=== PATIENT | female | born 1950 | race African-American/Black ===

== ENCOUNTER 2020-01-10 18:43 | Inpatient (IN) | payer MEDICARE, BC, SELFPAY ==
--- NOTE | ~2020-01-10 | XR_ITS ---
XR chest 1V portable DATE: 01/10/2020 20:45 INDICATION: Shortness of breath, generalized chest pain, fever. TECHNIQUE: Portable AP chest on 01/10/2020 at 2039 hours COMPARISON: 01/12/2015 2 view chest FINDINGS: There is borderline or mild cardiomegaly. There is aortic calcification and tortuosity. There is mild prominence of minor fissure suggesting subpleural edema. There is mild pulmonary vascul ar congestion/redistribution. There is mild infiltrate and/or atelectasis at the left lower lobe. Osteoarthritic change at the glenohumeral joints. Degenerative change at the acromioclavicular joints . Scoliosis and degenerative spurring of the thoracic spine. Moderate osteopenia. IMPRESSION: Borderline or mild cardiomegaly, mild pulmonary vascular congestion, minor fissure subple ural edema, suggesting mild congestive changes Mild infiltrate or atelectasis, left lower lobe Reviewed, dictated and finalized at location A. UNHAIRER IMPRESSION: Borderline or mild cardiomegaly, mild pulmonary vascular congestion , minor fissure subpleural edema, suggesting mild congestive changes Mild infiltrate or atelectasis, left lower lobe
--- NOTE | ~2020-01-10 | US_ITS ---
EXAMINATION: US venous doppler LE EXAM DATE: 01/11/2020 12:14 INDICATION: right leg pain and bilateral leg swelling. TECHNIQUE: Multiple grayscale, color flow and Doppler images of the lower extremity deep venous syste ms bilaterally were obtained and reviewed. Comparison is made to prior examination from 02/24/2018. FINDINGS: Right side: The right common femoral, femoral and profunda veins demonstrate normal color flow, respi ratory variation, augmentation and compressibility. Compressibility, color flow confirmed within the right popliteal, posterior tibial, peroneal, and greater saphenous veins. Left side: The left common femoral, femoral and profunda veins demonstrate normal color flow, respira tory variation, augmentation and compressibility. Compressibility, color flow confirmed within the l eft popliteal, posterior tibial, peroneal, and greater saphenous veins. IMPRESSION: No lower extremity deep venous thrombosis bilaterally. Reviewed, dictated and finalized at location A.
--- NOTE | ~2020-01-10 | US_ITS ---
EXAMINATION: US right upper quadrant DATE: 01/14/2020 07:39 INDICATION: Abdominal pain TECHNIQUE: Multiple grayscale and Doppler ultrasound images of the abdomen were obtained. COMPARISON: None available FINDINGS: Bowel gas obscures visualization of the pancreas. The visualized portions of the pancreas a re unremarkable. The liver is normal with normal echogenicity and echotexture. No surface nodularity. Normal hepatopetal flow in the main portal vein. The gallbladder is surgically absent. The normal co mmon bile duct measures 4 mm. IMPRESSION: 1. No sonographic correlate for the patient's symptoms. Reviewed, dictated and finalized at location A. SAFETY INSPECTOR
--- NOTE | 2020-01-10 18:59 | ECG_ITS ---
Measurements Intervals [place] Rate: 97 P: [place]: 0 QRS: -23 QRSD: 103 T: 58 QT: 328 QTc: 418 Interpretive Statements ATRIAL FIBRILLATION WITH SHOR RUN OF ATRIAL TACHYCARDIA WITH RAPID VENTRICULAR RESPONSE LOW QRS VOLTAGE IN PRECORDIAL LEADS NONSPECIFIC T-WAVE ABNORMALITY- HIGH LATERAL LEADS BASELINE ARTIFACT- I, II, III, AVR, AVL, AVF, V3 ABNORMAL ECG Electronically Signed On 01-11-2020 8:19:16 MOTOR BIKE MECHANIC by Bonifacio Regan D.O.
--- NOTE | 2020-01-10 19:04 | ED.FEVER ---
HPI - Fever General Chief Complaint: Upper Respiratory Infection Stated Complaint: FEVER/COUGH Time Seen by Provider: 01/10/20 18:49 Source: family Mode of arrival: EMS Limitations: altered mental status History of Present Illness HPI Narrative: Patient is a 69-year-old female brought in by EMS due to shortness of breath, cough nonproductive and fever that started today. Patient is a poor historian, she is nonverbal, just nods up and down left and right to answer queries, due to history of intracranial hemorrhage secondary to ruptured aneurysms according to daughter. Patient is also nonambulatory and bedridden. Related Data Allergies Allergy/AdvReac Type Severity Reaction Status Date / Time atorvastatin Allergy Unknown Unknown Verified 01/10/20 19:04 clarithromycin Allergy Unknown Unknown Verified 01/10/20 19:04 Penicillins Allergy Unknown Unknown Verified 01/10/20 19:04 phenytoin Allergy Unknown Unknown Verified 01/10/20 19:04 Review of Systems Review of Systems: ROS unobtainable: Yes unobtainable due to medical condition Exam Const: Other: Moderate distress, morbidly obese HENMT: Head: normal to inspection Ears: external ears normal General nose exam: external nose not normal and no nasal discharge noted Face and sinus: normal facial exam Mouth: Yes moist mucous membranes Eyes: Conjunctivae: conjunctivae normal Pupils: Equal, round and reactive pupils present Neck: Neck: normal visual inspection Chest: Chest palpation & inspection: normal inspection of the chest Resp: Effort & Inspection: tachypneic Auscultation: rhonchi Cardio: Rate: regular rate Rhythm: regular rhythm GI: GI Palp: Yes Soft to palpation, No Tenderness to palpation present (GI), No Guarding due to palpation present (GI), No Rigid due to palpation and No Rebound tenderness present Skin: General skin exam: normal color Neuro: General: moves all extremities Other: Not oriented to time place and name Extrem: General: edema bilateral Course Reevaluation(s) Reevaluation #1: After the DuoNeb treatment patient is better. Date: 01/11/20 Time: 00:15 Vital Signs Vital signs: Vital Signs Temperature 37.9 C H 01/10/20 19:05 Pulse Rate 82 01/10/20 19:05 Respiratory Rate 20 01/10/20 19:05 Blood Pressure 130/55 L 01/10/20 19:05 Pulse Oximetry 99 01/10/20 19:05 Temperature 37.9 C H 01/10/20 19:05 Pulse Rate 88 01/10/20 22:00 Respiratory Rate 22 H 01/10/20 22:00 Blood Pressure 103/54 L 01/10/20 22:00 Pulse Oximetry 92 01/10/20 22:00 MDM - Fever MDM Narrative Medical decision making narrative: I have reviewed her labs and chest x-ray findings, suggestive of pneumonia most probable Covid. Try to do a CT scan of her chest but patient was unable to fit in the machine due to her wide girth. Discussed with hospitalist accepted the admit Differential Diagnosis Differential diagnosis: Likely gastroenteritis, community acquired pneumonia, viral infection and sepsis Lab Data Result diagrams: 01/10/20 20:08 01/10/20 20:08 Labs: Lab Results 01/10/20 01/10/20 01/10/20 Range/Units 20:08 20:08 20:08 WBC 13.3 H (4.5-10.0) K/mm3 RBC 3.77 L (4.2-5.4) M/mm3 Hgb 10.5 L (12.0-15.0) g/dL Hct 33.7 L (37.0-47.0) % MCV 89.4 (80-100) fl MCH 27.9 (26-34) pg MCHC 31.2 L (32-36) g/dl RDW 15.8 H (11.5-14.5) % Plt Count 195 (150-375) k/mm3 MPV 11.2 H (7.4-10.4) fl Immature Gran % (Auto) Not Reportable Neut % (Auto) Not Reportable Lymph % (Auto) Not Reportable Schley % (Auto) Not Reportable Eos % (Auto) Not Reportable Baso % (Auto) Not Reportable Lymph # (Auto) Not Reportable Schley # (Auto) Not Reportable Eos # (Auto) Not Reportable Baso # (Auto) Not Reportable Abs Immat Gran (auto) Not Reportable Absolute Neuts (auto) Not Reportable Absolute Nucleated RBC Not Reportable Total Counted 100
[2020-01-10 19:05] VITALS: BP 130/55; PULSE 82; RESP 20; TEMP 37.9; O2SAT 99
[2020-01-10 19:26] VITALS: O2SAT 99
--- NOTE | 2020-01-10 20:04 | PC.NURSE ---
Pt is a difficult stick for blood cultures and labs. Laureen ONIEL is at bedside now attempting to draw with multiple attempts at this time.
[2020-01-10 20:22] LABS: Hematocrit 33.7 % (37.0-47.0); Hemoglobin 10.5 g/dL (12.0-15.0); Immature Platelet Fraction Pct 3.9 % (0.9-11.2); Mean Corpuscular HGB Conc 31.2 g/dl (32-36); Mean Corpuscular Hemoglobin 27.9 pg (26-34); Mean Corpuscular Volume 89.4 fl (80-100); Mean Platelet Volume 11.2 fl (7.4-10.4); Platelet Count Result 195 k/mm3 (150-375); Red Blood Count 3.77 M/mm3 (4.2-5.4); Red Cell Distribution Width 15.8 % (11.5-14.5); White Blood Count 13.3 K/mm3 (4.5-10.0)
--- NOTE | 2020-01-10 20:28 | PC.NURSE ---
lab notified of CMP added on by EDP for blood specimens already in the lab.
[2020-01-10 20:30] VITALS: BP 131/63; PULSE 131; RESP 24; O2SAT 96
[2020-01-10 20:34] LABS: Lactic Acid Reflex 1.6 mmol/L (0.7-2.1)
[2020-01-10 20:35] LABS: INR 1.2; Prothrombin Time 15.4 Seconds (11.1-14.7)
[2020-01-10 20:36] LABS: Partial Thromboplastin Time 24.4 SECONDS (22.3-36.8)
--- NOTE | 2020-01-10 20:40 | PC.NURSE ---
military cook from lab; Tom came to assist and was able to get 2nd set of blood cultures drawn successfully at this time.
[2020-01-10 20:47] LABS: Troponin I 0.016 ng/mL (0.000-0.034)
[2020-01-10 20:56] LABS: Band Neutrophils Percent 6 % (0-6); Lymphocytes Absolute Manual 1.86 K/mm3 (1.1-4.5); Neutrophils Absolute Manual 11.43 K/mm3 (1.7-7.2); Neutrophils Percent Manual 80 % (46-73); Total Cells Counted 100
[2020-01-10 20:57] LABS: Anisocytosis 2+ (NORMAL); Platelet Estimate Adequate (Adequate)
[2020-01-10 21:00] LABS: Alanine Aminotransferase 13 U/L (4-35); Albumin Level 3.2 g/dL (3.5-5.1); Alkaline Phosphatase 197 U/L (38-126); Anion Gap 4 mmol/L (8-16); Aspartate Amino Transferase 21 U/L (14-36); Bilirubin,Total 0.8 mg/dL (0.2-1.3); Blood Urea Nitrogen 28 mg/dL (7-17); Calcium 9.2 mg/dL (8.4-10.2); Carbon Dioxide 29 mmol/L (22-30); Chloride 105 mmol/L (98-107); Estimated Glomerular Filt Rate 41; Glucose 55 mg/dL (65-105); Potassium 4.8 mmol/L (3.4-5.0); Sodium 138 mmol/L (137-145)
[2020-01-10] MEDS: DEXTROSE 50% 25 GM/50 ML SYRINGE (21:22)
[2020-01-10 22:00] VITALS: BP 103/54; PULSE 88; RESP 22; O2SAT 92
[2020-01-10 23:45] LABS: Alveolar/Arterial O2 Gradient 42.3 mmHg; Base Excess ABG -0.3 mEq/l (+/-2.0); Carboxyhemoglobin 0.7 % THb (0-2.0); Device ROOM AIR; Fractional Inspired Oxygen 21 %; HCO3 ABG 24.5 mEq/l (22.0-26.0); Methemoglobin ABG 0.1 %THb (0-1.5); Modified Allen's Test Unable to perform; Oxygen Content ABG 12.8 %vol (16.0-22.0); Oxygen Saturation ABG 90.8 % (95.0-100.0); Oxyhemoglobin 90.2 % THb (90.0-100.0); PCO2 ABG 40.3 mmHg (35.0-45.0); PO2 ABG 59.2 mmHg (80.0-100.0); PO2 FiO2 Ratio Arterial Blood 2.82 %; Site Drawn RIGHT RADIAL; Total Hemoglobin 10.1 g/dL (12.0-18.0); pH ABG 7.401 (7.350-7.450)
[2020-01-11] VITALS (11 sets, daily range): BP systolic 137–159; BP diastolic 53–79; PULSE 78–90; RESP 16–23; TEMP 36.6–37.8; O2SAT 92–100; BMI 58.5; BMI 11.0
--- NOTE | 2020-01-11 00:19 | PM.IMHP ---
H&P: HPI History of Present Illness Date/Time: 01/11/20 00:19 Chief complaint: Pneumonia Narrative: This is a morbidly obese 69-year-old diabetic female who is known to be completely aphasic with right-sided hemiparesis following previous CVA and who presented to the hospital with her daughter secondary to increased shortness of breath and fever that started today. The patient is known to be bed ridden. on my encounter with the patient tonight her daughter has already left. The patient answers questions by nodding her head and agrees that she has been nauseated and did vomit today. It is unknown how many times exactly that she vomited. She also can't tell me if she had any choking episode. She denies any chest pain, wheezing, headache, dysuria, cough, or diarrhea. The patient was evaluated emergency room tonight and found to be hypoxic. She was placed on supplemental oxygen an ABG demonstrated hypoxemic respiratory failure. ER provider attempted to obtain a chest CT scan although the patient was too large for the CT machine. CXR obtained in the ER demonstrated mild cardiomegaly, mild pulmonary vascular congestion, minor fissure subpleural edema, suggesting mild congestive changes and mild infiltrate or atelectasis, left lower lobe. The patient was treated with IV antibiotics, dexamethasone and IV fluids. The patient has been swabbed for COVID-19 and admitted to the hospital for further care. Review of Systems Review of Systems: All systems reviewed & are unremarkable except as noted in HPI and below PMFSH Past Medical History Medical History CHF (congestive heart failure) Diabetes mellitus H/O: HTN (hypertension) Social History Social History Smoking status: Former smoker Second hand tobacco smoke exposure: No Alcohol intake: never Substance use: never Spiritual care concerns: No Comments Past surgical and family histories reviewed and noncontributory. Meds Home Medications and Allergies Home Medications Medication Instructions Recorded Confirmed Type amlodipine 10 mg PO DAILY 01/11/20 01/11/20 History ascorbic acid (vitamin C) 250 mg PO DAILY 01/11/20 01/11/20 History aspirin [Adult Aspirin] 81 mg PO DAILY 01/11/20 01/11/20 History citalopram 10 mg PO DAILY 01/11/20 01/11/20 History cyanocobalamin (vitamin B-12) 1,000 mcg IM MONTHLY 01/11/20 01/11/20 History furosemide 40 mg PO DAILY 01/11/20 01/11/20 History gabapentin 300 mg PO TID 01/11/20 01/11/20 History glipizide 20 mg PO DAILY 01/11/20 01/11/20 History ibuprofen 600 mg PO Q6H PRN 01/11/20 01/11/20 History insulin detemir U-100 [Levemir 72 unit SUBCUT HS 01/11/20 01/11/20 History FlexTouch U-100 Insuln] labetalol 400 mg PO DAILY 01/11/20 01/11/20 History lancets [OneTouch Delica Plus 01/11/20 01/11/20 History Lancet] lancets [OneTouch UltraSoft 01/11/20 01/11/20 History Lancets] losartan 100 mg PO DAILY 01/11/20 01/11/20 History nystatin 1 applic TOPICAL BID 01/11/20 01/11/20 History omeprazole 20 mg PO DAILY 01/11/20 01/11/20 History potassium chloride 20 meq PO DAILY 01/11/20 01/11/20 History simvastatin 40 mg PO DAILY 01/11/20 01/11/20 History Allergies Allergy/AdvReac Type Severity Reaction Status Date / Time atorvastatin Allergy Unknown Unknown Verified 01/11/20 04:20 clarithromycin Allergy Unknown Unknown Verified 01/11/20 04:20 Penicillins Allergy Unknown Unknown Verified 01/11/20 04:20 phenytoin Allergy Unknown Unknown Verified 01/11/20 04:20 Vital Signs Vital Signs - 24 hr 01/10/20 19:05 01/10/20 19:26 01/10/20 20:30 Temperature 37.9 C H Pulse Rate 82 131 H Respiratory Rate 20 24 H Blood Pressure 130/55 L 131/63 Pulse Oximetry 99 99 96 01/10/20 22:00 Temperature Pulse Rate 88 Respiratory Rate 22 H Blood Pressure 103/54 L Pulse Oximetry 92 Exam Const: General: cooperative, alert, awake, il
[2020-01-11] MEDS: ALBUTEROL SULFATE NEB 2.5 MG/0.5 ML INH 5 MG INHALATION (00:42)
[2020-01-11] MEDS: IPRATROPIUM BR 0.02% INH SOLN 0.5 MG/2.5 ML VIAL INHALATION (00:42)
[2020-01-11] MEDS: LACTATED RINGERS 1,000 ML 200 ML IV CONT (01:22)
--- NOTE | 2020-01-11 01:25 | PC.NURSE ---
Per EDShaneka Emmanuel via verbal order read back, give 1L of lactated ringers at 150mL/hr.
--- NOTE | 2020-01-11 01:39 | PC.NURSE ---
IV fluids stopped at this time.
[2020-01-11 02:01] LABS: Glucose Point of Care 139 (65-105)
--- NOTE | 2020-01-11 03:15 | ADMGEN ---
This patient, Susannah Husain, was admitted to [facility] Surg Room 328-01. Patient/family oriented to hospital policies and general routines including ID bracelet, bed and alarms, visiting hours, pain management, procedures, bathroom and other care routines, personal items, smoking policy, room service/diet, and visiting hours. Information on how to activate the Rapid Response Team has been discussed. Patient/Family are encouraged to report perceived risks to care and to ask questions if they do not understand what they are told or what they should do.
[2020-01-11 05:10] LABS: Alveolar/Arterial O2 Gradient 69.1 mmHg; Base Excess ABG -1.5 mEq/l (+/-2.0); Fractional Inspired Oxygen 28 %; HCO3 ABG 23.3 mEq/l (22.0-26.0); Oxygen Content ABG 14.1 %vol (16.0-22.0); Oxygen Saturation ABG 96.2 % (95.0-100.0); Oxyhemoglobin 94.7 % THb (90.0-100.0); PCO2 ABG 39.5 mmHg (35.0-45.0); PO2 ABG 83.9 mmHg (80.0-100.0); Total Hemoglobin 10.5 g/dL (12.0-18.0); pH ABG 7.389 (7.350-7.450)
[2020-01-11 05:11] LABS: Device NASAL CANNULA; Modified Allen's Test Pass; Site Drawn LEFT RADIAL
[2020-01-11 08:08] LABS: Basophils Absolute Auto 0.1 K/mm3 (0.0-0.1); Basophils Percent Auto 0.3 % (0.2-1.2); Eosinophils Absolute Auto 0.2 K/mm3 (0-0.3); Eosinophils Percent Auto 0.7 % (0-4.4); Hematocrit 30.4 % (37.0-47.0); Hemoglobin 9.7 g/dL (12.0-15.0); Immature Granulocyte Absolute 0.24 K/mm3 (0.00-0.031); Immature Granulocyte Percent A 0.9 % (0-0.5); Lymphocytes Absolute Auto 0.79 K/mm3 (0.9-3.2); Mean Corpuscular HGB Conc 31.9 g/dl (32-36); Mean Corpuscular Volume 87.9 fl (80-100); Mean Platelet Volume 9.8 fl (7.4-10.4); Monocytes Absolute Auto 0.2 K/mm3 (0.1-0.6); Monocytes Percent Auto 0.9 % (2.6-8.5); Neutrophils Absolute Auto 24.9 K/mm3 (1.3-6.7); Neutrophils Percent Auto 94.2 % (45.5-73.1); Nucleated Red Blood Cells Perc 0.1 % (0.0-0.2); Platelet Count Result 177 k/mm3 (150-375); Red Blood Count 3.46 M/mm3 (4.2-5.4); Red Cell Distribution Width 15.5 % (11.5-14.5); White Blood Count 26.4 K/mm3 (4.5-10.0)
[2020-01-11 08:34] LABS: Anion Gap 7 mmol/L (8-16); Blood Urea Nitrogen 30 mg/dL (7-17); Calcium 8.8 mg/dL (8.4-10.2); Carbon Dioxide 24 mmol/L (22-30); Chloride 107 mmol/L (98-107); Estimated CRCL calculation 57 ml/min; Estimated Glomerular Filt Rate 45; Glucose 170 mg/dL (65-105); Potassium 6.3 mmol/L (3.4-5.0); Sodium 138 mmol/L (137-145)
[2020-01-11 09:00] LABS: Thyroid Stimulating Hormone Reflex 0.974 uIU/mL (0.465-4.68)
[2020-01-11] MEDS: ALBUTEROL SULFATE (*SP) AEROSOL 1 PUFF 2 PUFF INHALATION ×3 (09:10→21:41)
--- NOTE | 2020-01-11 09:40 | PCSTNOTE ---
Modified Barium Swallow study cannot be completed this date, 01/11/20 due to patient being COVID pending. THe MBS will be completed as soon as patient exhibits COVID clear.
--- NOTE | 2020-01-11 11:42 | ECG_ITS ---
Measurements Intervals [place] Rate: 82 P: -74 DC: 179 QRS: -8 QRSD: 104 T: 22 QT: 392 QTc: 459 Interpretive Statements SINUS RHYTHM WITH SINUS ARRHYTHMIA LOW QRS VOLTAGE IN PRECORDIAL LEADS BORDERLINE T WAVE ABNORMALITY- INFERIOR LEADS BASELINE ARTIFACT- V3-V4 BORDERLINE ECG Electronically Signed On 01-11-2020 14:50:32 MARINE PHOTOGRAPHER by Bonifacio Regan D.O.
--- NOTE | 2020-01-11 11:58 | PM.IMPN ---
Progress Note: A&P Assessment and Plan (1) Acute respiratory failure with hypoxemia: Code(s): J96.01 - Acute respiratory failure with hypoxia Status: Acute Assessment and Plan: May be secondary to acute pneumonia versus acute CHF exacerbation. Continue oxygen supplementation. Continuous pulse oximetry. Wean off of oxygen when possible. Monitor ABG. 2nd ABG stable. Check echocardiogram i RT assess and treat. Continue Albuterol Incentive Spirometry May CTA if not improving. (2) Pneumonia: Qualifiers: Laterality: bilateral Lung location: unspecified part of lung Pneumonia type: due to unspecified organism Qualified Code(s): J18.9 - Pneumonia, unspecified organism Code(s): J18.9 - Pneumonia, unspecified organism Status: Acute Assessment and Plan: Possible COVID pneumonia versus bacterial aspiration pneumonia. Rule out possible aspiration pneumonia as the patient is known to be aphasic - Modified Barium Swallow Eval study ordered treat high fevers, tylenol ordered. treat with IV levaquin continue albuterol inhalers QID scheduled and PRN ordered Incentive Spirometry Continue NPO overnight. Oxygen supplementation as needed. Sputum cultures. Blood cultures. UA sent on for urine culture. (3) Suspected 2019 novel coronavirus infection: Code(s): Z20.828 - Contact with and (suspected) exposure to other viral communicable diseases Status: Acute Assessment and Plan: Patient has been swabbed for lu virus - results likely back by morning. Continue droplet isolation. Supportive care. COVID-19 results pending. Continue dexamethasone. Continue IV Levaquin. Continuous cardiac telemetry monitoring. (4) Acute renal failure: Qualifiers: Acute renal failure type: unspecified Qualified Code(s): N17.9 - Acute kidney failure, unspecified Code(s): N17.9 - Acute kidney failure, unspecified Status: Acute Assessment and Plan: Likely secondary to hypoperfusion and pre renal in origin. Slightly improving from 1.5 to 1.4 today. Monitor renal function and urine output. Avoid nephrotoxin agents. But needed to restart Lasix at 40mg daily. Renally dose medications. Levaquin Q 48 hours. (5) Leukocytosis: Qualifiers: Leukocytosis type: unspecified Qualified Code(s): D72.829 - Elevated white blood cell count, unspecified Code(s): D72.829 - Elevated white blood cell count, unspecified Status: Acute Assessment and Plan: Likely secondary to acute pneumonia. Monitor CBCs WBC 13.3 yesterday, 26.4 today checking LDH, CRP, cardiac panel, Ferritin now last lactic was normal at 1.6 Elevated fevers, ordered IV tylenol ordered Sputum cx, BLood cultures collected and pending, UA done, ordered urine culture. continue IV Levaquin (6) Chronic anemia: Code(s): D64.9 - Anemia, unspecified Status: Chronic Assessment and Plan: Likely anemia of chronic disease. Not on Iron at home per home med list Hgb 10.5 to 9.7 today, Hct 33.7 to 30.4 today, Plts 195 to 177 today. Hemodynamically stable no acute s/s of new CVA No signs of acute blood loss. Monitor H&H, transfuse p.r.n.. (7) Hypoglycemia: Code(s): E16.2 - Hypoglycemia, unspecified Status: Acute Assessment and Plan: RESOLVED. DDM II, on insulin at home. Hypoglycemia protocol. The patient is known to be diabetic and may simply be hypoglycemic from not eating yesterday. ordered ACHS accuchecks ordered low dose insulin SSI protocol may need to increase from low to moderate SSI if not controlled continue to monitor glucose levels and renal function A1C lab pending (8) CHF (congestive heart failure): Code(s): I50.9 - Heart failure, unspecified Status: Acute Assessment and Plan: Uncompensated at this time. Takes daily oral Lasix 40 mg with a potassium 20 mEq supplement at sheri
[2020-01-11] MEDS: SODIUM POLYSTYRENE SULFONONATE 15 GM/60 ML BTL PO (12:19)
[2020-01-11] MEDS: SODIUM CHLORIDE 0.9% IV 1,000 ML 100 ML IV CONT (12:19)
[2020-01-11 12:38] LABS: Anion Gap 6 mmol/L (8-16); Blood Urea Nitrogen 29 mg/dL (7-17); Calcium 8.9 mg/dL (8.4-10.2); Carbon Dioxide 27 mmol/L (22-30); Chloride 104 mmol/L (98-107); Estimated CRCL calculation 53 ml/min; Estimated Glomerular Filt Rate 41; Glucose 196 mg/dL (65-105); Lactate Dehydrogenase 444 U/L (313-618); Potassium 5.5 mmol/L (3.4-5.0); Sodium 137 mmol/L (137-145)
[2020-01-11 12:46] LABS: Magnesium 2.1 mg/dL (1.6-2.3); Phosphorus 3.1 mg/dL (2.5-4.5)
[2020-01-11 12:53] LABS: Glucose Point of Care 212 (65-105)
[2020-01-11 12:53] LABS: Glucose Point of Care 180 (65-105)
[2020-01-11 12:59] LABS: NT Pro B Type Natriuretic Pept 4340 PG/ML (5-100)
[2020-01-11 13:08] LABS: CRP 8.2 mg/dL (<1.0); Creatine Kinase 37 U/L (30-135); Creatine Kinase MB 0.6 ng/mL (0.0-2.37)
[2020-01-11 13:13] LABS: Hemoglobin A1C 7.1 % (<5.7)
[2020-01-11 13:52] LABS: Troponin I < 0.012 ng/mL (0.000-0.034)
[2020-01-11] MEDS: FUROSEMIDE INJ 40 MG/4 ML VIAL IV PUSH (14:17)
[2020-01-11 14:56] LABS: SARS-CoV-2 RNA PCR Negative
[2020-01-11 16:54] LABS: Add Urine Microscopic? YES; Appearance Urine Cloudy (Clear); Bacteria Urine 2+ /hpf; Bilirubin Urine Negative (Negative); Blood Urine 2+ (Negative); Color Urine Yellow (Yellow); Glucose Urine UA Negative (Negative); Ketones Urine 1+ mg/dL (Negative); Leukocyte Esterase Ur 3+ LEU/UL (NEGATIVE); Mucus Urine Rare /lpf; Nitrate Urine Negative (Negative); Protein Urine 1+ mg/dL (Negative); Specific Grav Ur 1.016 (1.001-1.035); Squamous Epithelial Cell Urine Occasional /hpf (Few); WBC Urine >75 /hpf (0-3)
[2020-01-11 21:09] LABS: Glucose Point of Care 209 (65-105)
[2020-01-12] VITALS (11 sets, daily range): BP systolic 134–162; BP diastolic 67–74; PULSE 69–84; RESP 16–20; TEMP 36.4–36.9; O2SAT 95–98
--- NOTE | 2020-01-12 01:06 | ECHO_ITS ---
Patient Info Name: Susannah Husain Age: 69 years : 1950 Gender: Female Ht: 62 in Wt: 388 lbs BSA: 2.91 m2 HR: 80 bpm BP: 134 / 67 mmHg Heart Rhythm: Sinus Rhythm Technical Quality: Good Exam Date: 01/12/2020 9:52 AM Exam Location: [facility] Pulmonary Patient Status: Inpatient Admit Date: 01/11/2020 Staff Ordering Physician: Adin Tejada MD Well Tester: Srini Casey LISSETTE Attending Provider: López Choi MD Referring Physician: Mallory SMITH; Exam Type: CA echo dop color flow w con Study Info Indications I50.9 - Heart failure, unspecified Complete two-dimensional, color flow and Doppler transthoracic echocardiogram is performed. Contrast/Agitated Saline Contrast/Ag. Saline: Definity Amount: 2.00 ml Administered By: Rachell Guillen, SHANNAN Existing IV Access: Yes History/Risk Factors Pneumonia; CHF w/ BNP 4040, HTN, SOB, ARF hypoxia, cardiomegaly, edema. Summary 1. Complete two-dimensional, color flow and Doppler transthoracic echocardiogram is performed. 2. Left ventricular systolic function is normal, estimated at 60-65%. 3. Definity contrast injected to improve visualization. 4. Technically challenging examination presumably because of obesity. Left Ventricle Left ventricular chamber dimension is normal. Left ventricular systolic function is normal, estimated at 60-65%. The left ventricular diastolic function is normal. Definity contrast injected to improve visualization. Right Ventricle Right ventricular chamber dimension is normal. Left Atria Left atrial chamber dimension is normal. Right Atria Right atrial chamber dimension is normal. Aortic Valve The aortic valve is normal. Pulmonic Valve The pulmonic valve is not well visualized. Mitral Valve The mitral valve has normal leaflets. Tricuspid Valve The tricuspid valve leaflets are normal. Pericardium/Pleural The pericardium appears normal. Aorta The aortic root size at the sinus of Valsalva is normal. Left Ventricular Outflow Tract Name Value Normal LVOT 2D LVOT Diameter 2.37 cm LVOT Doppler LVOT Peak Gradient 3 mmHg LVOT Mean Gradient 2 mmHg LVOT VTI 18.29 cm LVOT VTI/AV VTI Ratio 0.59 LVOT Stroke Volume 80.93 ml LVOT CO 6.73 l/min LVOT CI 2.32 L/min/m2 Mitral Valve Name Value Normal MV Doppler MV Decel [place] 504.23 cm/s2 MV PHT 0 s MV Area (PHT) 4.13 cm2 4.00-5.00 MV Diastolic Function MV E Peak Velocity
[2020-01-12 02:19] LABS: Anion Gap 6 mmol/L (8-16); Blood Urea Nitrogen 31 mg/dL (7-17); Calcium 8.7 mg/dL (8.4-10.2); Carbon Dioxide 29 mmol/L (22-30); Chloride 103 mmol/L (98-107); Estimated CRCL calculation 57 ml/min; Estimated Glomerular Filt Rate 45; Glucose 225 mg/dL (65-105); Potassium 4.8 mmol/L (3.4-5.0); Sodium 138 mmol/L (137-145)
[2020-01-12 04:20] LABS: Glucose Point of Care 220 (65-105)
[2020-01-12 06:37] LABS: Hematocrit 28.6 % (37.0-47.0); Hemoglobin 9.2 g/dL (12.0-15.0); Immature Platelet Fraction Pct 3.3 % (0.9-11.2); Mean Corpuscular HGB Conc 32.2 g/dl (32-36); Mean Corpuscular Volume 86.9 fl (80-100); Mean Platelet Volume 10.3 fl (7.4-10.4); Platelet Count Result 128 k/mm3 (150-375); Red Blood Count 3.29 M/mm3 (4.2-5.4); Red Cell Distribution Width 15.7 % (11.5-14.5); White Blood Count 27.2 K/mm3 (4.5-10.0)
[2020-01-12 06:55] LABS: Alanine Aminotransferase 13 U/L (4-35); Albumin Level 2.9 g/dL (3.5-5.1); Alkaline Phosphatase 150 U/L (38-126); Anion Gap 5 mmol/L (8-16); Aspartate Amino Transferase 16 U/L (14-36); Bilirubin,Total 0.4 mg/dL (0.2-1.3); Blood Urea Nitrogen 30 mg/dL (7-17); Calcium 8.9 mg/dL (8.4-10.2); Carbon Dioxide 31 mmol/L (22-30); Chloride 104 mmol/L (98-107); Estimated CRCL calculation 60 ml/min; Estimated Glomerular Filt Rate 49; Glucose 199 mg/dL (65-105); Potassium 4.6 mmol/L (3.4-5.0); Sodium 140 mmol/L (137-145)
[2020-01-12 06:56] LABS: NT Pro B Type Natriuretic Pept 4040 PG/ML (5-100)
[2020-01-12] MEDS: ALBUTEROL SULFATE (*SP) AEROSOL 1 PUFF 2 PUFF INHALATION ×4 (08:21→21:43)
[2020-01-12 08:24] LABS: Glucose Point of Care 195 (65-105)
[2020-01-12] MEDS: FUROSEMIDE INJ 40 MG/4 ML VIAL IV PUSH (09:40)
[2020-01-12] MEDS: PERFLUTREN LIPID MICROSPHERES 1.5 ML VIAL DILUTED TO 10 ML TOTAL VOLUME IV PUSH (10:14)
--- NOTE | 2020-01-12 11:44 | PCSTNOTE ---
Modified Barium Swallow study cannot be completed according to the Radiology department. Nursing was notified. Awaiting any further physician instructions.
[2020-01-12 12:33] LABS: Glucose Point of Care 167 (65-105)
--- NOTE | 2020-01-12 12:57 | PM.IMPN ---
Progress Note: A&P Assessment and Plan (1) Septicemia: Code(s): A41.9 - Sepsis, unspecified organism Status: Acute Assessment and Plan: Present on admission with fevers, tachycardia and elevated WBC. Source intially felt related to PNA but consider urinary source. BCx growing gram negative bacilli. Currently on Levaquin and Rocephin. Will stop Levaquin and continue Rocephin. Add Ertapenem until final results known. Follow up on urine culture. (2) Acute respiratory failure with hypoxemia: Code(s): J96.01 - Acute respiratory failure with hypoxia Status: Acute Assessment and Plan: ABG on admission showed a PO2 of 59 on room air. CXR mild infiltrate or atelectasis LLL and mild congestive changes. Stable on 2 L. She has been weaned to 1 L now. Good UOP. Continue Lasix IV for today. Wean oxygen as tolerated (3) Pneumonia: Qualifiers: Laterality: bilateral Lung location: unspecified part of lung Pneumonia type: due to unspecified organism Qualified Code(s): J18.9 - Pneumonia, unspecified organism Code(s): J18.9 - Pneumonia, unspecified organism Status: Acute Assessment and Plan: As above with mild infiltrate left lower lobe. She does have elevated white count and O2 requirement. Concern for aspiration given the speech therapy findings. Adjust diet. Continue speech therapy. (4) Acute renal failure: Qualifiers: Acute renal failure type: unspecified Qualified Code(s): N17.9 - Acute kidney failure, unspecified Code(s): N17.9 - Acute kidney failure, unspecified Status: Acute Assessment and Plan: Baseline Cr 1-1.1 back in 2018. Cr 1.5 here. She is tolerating IV Lasix with Cr at 1.3 today. Monitor renal function and urine output. (5) Leukocytosis: Qualifiers: Leukocytosis type: unspecified Qualified Code(s): D72.829 - Elevated white blood cell count, unspecified Code(s): D72.829 - Elevated white blood cell count, unspecified Status: Acute Assessment and Plan: Related to above. (6) Chronic anemia: Code(s): D64.9 - Anemia, unspecified Status: Chronic Assessment and Plan: Baseline hemoglobin 10-11 range. Hemoglobin 10 5 on admission but dropped to 9.2 today. No evidence of acute blood loss. Check iron studies. Continue to follow. (7) CHF (congestive heart failure): Code(s): I50.9 - Heart failure, unspecified Status: Acute Assessment and Plan: Uncompensated at this time. BNP 4340. Takes daily oral Lasix 40 mg with a potassium 20 mEq supplement at home but has been without her Lasix for the last 10-12 days. Lasix IV starteed with good UOP. Echo ordered. Cr better today with diuresis. Contineu to monitor renal function, clincal exam and UOP. (8) Diabetes mellitus: Code(s): E11.9 - Type 2 diabetes mellitus without complications Status: Acute Assessment and Plan: A1c 7.1. The patient's blood glucose was reviewed on 01/11 Glucose better today. Continue AccuCheks covering with sliding scale. Hypoglycemia protocol available as needed. Continue to moniotr. Add low dose Lantus and advance as needed . (9) Dysrhythmia: Code(s): I49.9 - Cardiac arrhythmia, unspecified Status: Acute Assessment and Plan: AFib noted by EKG on admission but felt to be sinus mechanism on my review. Repeat EKG showing NSR. Tele showing 1st degree with occas 2nd degreeMobitz type 1. Echo ordered. Check apnea link. (10) Thrombocytopenia: Code(s): D69.6 - Thrombocytopenia, unspecified Status: Acute Assessment and Plan: Plt count dropped to 128K probably consumptive. Monitor closely (11) DVT prophylaxis: Code(s): Z29.9 - Encounter for prophylactic measures, unspecified Status: Acute Assessment and Plan: Lovenox; watch plt count (12) Hypoglycemia:
--- NOTE | 2020-01-12 13:22 | PCNFU ---
Nutrition Follow-Up Complete: Inadequate Oral Intake as related to aphasic as evidenced by NPO Goal: Meet estimated nutritional needs Limited progress on goal. We will continue current goal. Pt current nutrition is NPO. Nutrition recommendation: Per Bedside Swallow Eval. Last recorded weight is 172.9 kg down from 174.7 kg on admit. Bowel Motility:No BM reported at this time. Labs Reviewed:Glu 199,BUN 30, HCt 28.6,Hgb 9.2,GFR 49 Meds Noted:Britt Bautista Additional Notes:Nutrition follow up. Patient had MBS ordered, testing had not been performed due to PUI rule out. Patient PUI has been lifted, MBS has been canceled at this time. I spoke with Speech Therapy today, plans for Bedside Swallow today. Monitoring; Will monitor every 3 days.
[2020-01-12] MEDS: ENOXAPARIN 40 MG/0.4 ML SYRINGE SUB-Q (16:02)
[2020-01-12] MEDS: ERTAPENEM 1 GM/NS 50 ML 1 GM/50 ML BAG IVPB (16:03)
[2020-01-12 17:24] LABS: Glucose Point of Care 156 (65-105)
[2020-01-12] MEDS: INSULIN GLARGINE (*BKC) 100 UNITS/ML 10 UNITS SUB-Q (21:16)
[2020-01-12 21:51] LABS: Glucose Point of Care 249 (65-105)
[2020-01-13] VITALS (14 sets, daily range): BP systolic 150–155; BP diastolic 75–77; PULSE 66–115; RESP 16–23; TEMP 36.1–36.8; O2SAT 94–99; BMI 11.0
[2020-01-13 05:50] LABS: Basophils Absolute Auto 0.1 K/mm3 (0.0-0.1); Basophils Percent Auto 0.2 % (0.2-1.2); Eosinophils Absolute Auto 0.1 K/mm3 (0-0.3); Eosinophils Percent Auto 0.4 % (0-4.4); Hematocrit 28.9 % (37.0-47.0); Hemoglobin 9.6 g/dL (12.0-15.0); Immature Granulocyte Absolute 0.33 K/mm3 (0.00-0.031); Immature Granulocyte Percent A 1.4 % (0-0.5); Lymphocytes Absolute Auto 3.88 K/mm3 (0.9-3.2); Lymphocytes Percent Auto 16.1 % (18.3-44.2); Mean Corpuscular HGB Conc 33.2 g/dl (32-36); Mean Corpuscular Hemoglobin 27.5 pg (26-34); Mean Corpuscular Volume 82.8 fl (80-100); Monocytes Absolute Auto 1.7 K/mm3 (0.1-0.6); Monocytes Percent Auto 7.1 % (2.6-8.5); Neutrophils Absolute Auto 18.1 K/mm3 (1.3-6.7); Neutrophils Percent Auto 74.8 % (45.5-73.1); Platelet Count Result 130 k/mm3 (150-375); Red Blood Count 3.49 M/mm3 (4.2-5.4); Red Cell Distribution Width 15.6 % (11.5-14.5); White Blood Count 24.2 K/mm3 (4.5-10.0)
[2020-01-13 06:06] LABS: Alanine Aminotransferase 11 U/L (4-35); Alkaline Phosphatase 141 U/L (38-126); Anion Gap 4 mmol/L (8-16); Aspartate Amino Transferase 15 U/L (14-36); Bilirubin,Total 0.5 mg/dL (0.2-1.3); Blood Urea Nitrogen 28 mg/dL (7-17); Calcium 9.1 mg/dL (8.4-10.2); Carbon Dioxide 33 mmol/L (22-30); Chloride 102 mmol/L (98-107); Estimated CRCL calculation 65 ml/min; Estimated Glomerular Filt Rate 54; Glucose 118 mg/dL (65-105); Sodium 139 mmol/L (137-145)
[2020-01-13 06:57] LABS: Iron 123 ug/dL (37-170)
[2020-01-13 07:07] LABS: Percent Iron Saturation 46 % (20-50)
[2020-01-13 07:21] LABS: Ovalocytes 1+ (NORMAL); Platelet Estimate Adequate (Adequate); Target Cells 1+ (NORMAL)
[2020-01-13] MEDS: ERTAPENEM 1 GM/NS 50 ML 1 GM/50 ML BAG IVPB (08:39)
[2020-01-13] MEDS: ASCORBIC ACID 250 MG TABLET PO (08:39)
[2020-01-13] MEDS: ASPIRIN 81 MG ENTERIC TABLET PO (08:39)
[2020-01-13] MEDS: ENOXAPARIN 40 MG/0.4 ML SYRINGE SUB-Q (08:39)
[2020-01-13] MEDS: CITALOPRAM HYDROBROMIDE 10 MG TABLET PO (08:39)
[2020-01-13] MEDS: amLODIPine BESYLATE 5 MG TABLET 10 MG PO (08:39)
[2020-01-13] MEDS: GABAPENTIN 300 MG CAPSULE PO ×3 (08:40→16:46)
[2020-01-13] MEDS: FUROSEMIDE INJ 40 MG/4 ML VIAL IV PUSH (08:40)
[2020-01-13] MEDS: PANTOPRAZOLE 40 MG TABLET PO (08:41)
[2020-01-13] MEDS: SIMVASTATIN 20 MG TABLET 40 MG PO (08:41)
[2020-01-13 09:24] LABS: Glucose Point of Care 99 (65-105)
[2020-01-13] MEDS: ALBUTEROL SULFATE (*SP) AEROSOL 1 PUFF 2 PUFF INHALATION ×4 (09:56→22:37)
[2020-01-13 13:34] LABS: Glucose Point of Care 128 (65-105)
--- NOTE | 2020-01-13 14:15 | PM.IMPN ---
Progress Note: A&P Assessment and Plan (1) Septicemia: Code(s): A41.9 - Sepsis, unspecified organism Status: Acute Assessment and Plan: Present on admission with fevers, tachycardia and elevated WBC. Source intially felt related to PNA but consider urinary source. BCx growing EColi(2of2) sensitive to Rocephin. Urine culture growing 100K colonies non-uropathogenic gram positive MO felt to be contaminant. Source unclear but high suspicion for urinary source. Consider GB or bowel. Will check RUQ. Can't get CT scan due to her size. Continue Rocephin. Left message at family phone number in chart to provide update. (2) Acute respiratory failure with hypoxemia: Code(s): J96.01 - Acute respiratory failure with hypoxia Status: Acute Assessment and Plan: ABG on admission showed a PO2 of 59 on room air. CXR mild infiltrate or atelectasis LLL and mild congestive changes. Stable on 2 L. Apnea link showing AHI 12 and RI 16. Good UOP with Lasix IV. Continue the same today. Wean oxygen as tolerated (3) Pneumonia: Qualifiers: Laterality: bilateral Lung location: unspecified part of lung Pneumonia type: due to unspecified organism Qualified Code(s): J18.9 - Pneumonia, unspecified organism Code(s): J18.9 - Pneumonia, unspecified organism Status: Acute Assessment and Plan: As above with mild infiltrate left lower lobe. She does have elevated white count and O2 requirement. Concern for aspiration given the speech therapy findings. Diet adjusted. Continue speech therapy. Add Flayl to cover for possible aspiration. Contineu Rocephin. (4) Acute renal failure: Qualifiers: Acute renal failure type: unspecified Qualified Code(s): N17.9 - Acute kidney failure, unspecified Code(s): N17.9 - Acute kidney failure, unspecified Status: Acute Assessment and Plan: Baseline Cr 1-1.1 back in 2018. Cr 1.5 here. She is tolerating IV Lasix with Cr at 1.2 today. Monitor renal function and urine output. (5) Leukocytosis: Qualifiers: Leukocytosis type: unspecified Qualified Code(s): D72.829 - Elevated white blood cell count, unspecified Code(s): D72.829 - Elevated white blood cell count, unspecified Status: Acute Assessment and Plan: White count better today. Related to above. (6) Chronic anemia: Code(s): D64.9 - Anemia, unspecified Status: Chronic Assessment and Plan: Baseline hemoglobin 10-11 range. Hemoglobin 10 5 on admission but dropped to 9 range but stable today. No evidence of acute blood loss. Iron studies normal. Continue to follow. (7) CHF (congestive heart failure): Code(s): I50.9 - Heart failure, unspecified Status: Acute Assessment and Plan: Uncompensated at this time. BNP 4340. Takes daily oral Lasix 40 mg with a potassium 20 mEq supplement at home but has been without her Lasix for the last 10-12 days. Lasix IV started with good UOP. Echo showing EF 60% with normal diastolic function. Rt sided failure? Cr better today with diuresis. Continue to monitor renal function, clinical exam and UOP. (8) Diabetes mellitus: Code(s): E11.9 - Type 2 diabetes mellitus without complications Status: Acute Assessment and Plan: A1c 7.1. The patient's blood glucose was reviewed on 01/12 Glucose reasonably well controlled today. Continue AccuCheks covering with sliding scale. Hypoglycemia protocol available as needed. Continue to monitor. Continue Lantus and advance as needed . (9) Dysrhythmia: Code(s): I49.9 - Cardiac arrhythmia, unspecified Status: Acute Assessment and Plan: AFib noted by EKG on admission but felt to be incorrect with sinus mechanism on my review. Repeat EKG showing NSR. Tele showing 1st degree with occas 2nd degree Mobitz type 1 probably related to the ANILA. Echo as above. Wi
[2020-01-13] MEDS: EUCERIN CREAM 120 GM JAR 1 APPLIC TOPICAL (16:46)
[2020-01-13] MEDS: metroNIDAZOLE 250 MG TABLET PO ×2 (16:47→21:24)
[2020-01-13 18:06] LABS: Glucose Point of Care 156 (65-105)
[2020-01-13] MEDS: INSULIN GLARGINE (*BKC) 100 UNITS/ML 10 UNITS SUB-Q (22:05)
[2020-01-13 23:21] LABS: Glucose Point of Care 178 (65-105)
[2020-01-14] VITALS (11 sets, daily range): BP systolic 131–157; BP diastolic 65–73; PULSE 63–80; RESP 18–20; TEMP 36.4–36.7; O2SAT 96–98
[2020-01-14 06:39] LABS: Basophils Percent Auto 0.2 % (0.2-1.2); Eosinophils Absolute Auto 0.1 K/mm3 (0-0.3); Eosinophils Percent Auto 0.8 % (0-4.4); Hematocrit 30.1 % (37.0-47.0); Hemoglobin 9.7 g/dL (12.0-15.0); Immature Granulocyte Percent A 2.3 % (0-0.5); Lymphocytes Absolute Auto 2.92 K/mm3 (0.9-3.2); Lymphocytes Percent Auto 22.1 % (18.3-44.2); Mean Corpuscular HGB Conc 32.2 g/dl (32-36); Mean Corpuscular Hemoglobin 27.9 pg (26-34); Mean Corpuscular Volume 86.5 fl (80-100); Mean Platelet Volume 10.2 fl (7.4-10.4); Monocytes Absolute Auto 0.9 K/mm3 (0.1-0.6); Monocytes Percent Auto 6.5 % (2.6-8.5); Neutrophils Percent Auto 68.1 % (45.5-73.1); Platelet Count Result 144 k/mm3 (150-375); Red Blood Count 3.48 M/mm3 (4.2-5.4); Red Cell Distribution Width 15.8 % (11.5-14.5); White Blood Count 13.2 K/mm3 (4.5-10.0)
[2020-01-14 06:59] LABS: Anion Gap 5 mmol/L (8-16); Blood Urea Nitrogen 24 mg/dL (7-17); Carbon Dioxide 34 mmol/L (22-30); Chloride 100 mmol/L (98-107); Estimated CRCL calculation 70 ml/min; Estimated Glomerular Filt Rate 59; Glucose 165 mg/dL (65-105); Magnesium 1.8 mg/dL (1.6-2.3); Phosphorus 3.3 mg/dL (2.5-4.5); Potassium 3.9 mmol/L (3.4-5.0); Sodium 139 mmol/L (137-145)
[2020-01-14 08:27] LABS: Glucose Point of Care 146 (65-105)
[2020-01-14] MEDS: ALBUTEROL SULFATE (*SP) AEROSOL 1 PUFF 2 PUFF INHALATION ×4 (08:37→22:09)
[2020-01-14] MEDS: amLODIPine BESYLATE 5 MG TABLET 10 MG PO (08:43)
[2020-01-14] MEDS: FUROSEMIDE INJ 40 MG/4 ML VIAL IV PUSH ×2 (08:44→18:23)
[2020-01-14] MEDS: ASPIRIN 81 MG ENTERIC TABLET PO (08:44)
[2020-01-14] MEDS: GABAPENTIN 300 MG CAPSULE PO ×3 (08:44→17:02)
[2020-01-14] MEDS: ASCORBIC ACID 250 MG TABLET PO (08:44)
[2020-01-14] MEDS: CITALOPRAM HYDROBROMIDE 10 MG TABLET PO (08:44)
[2020-01-14] MEDS: metroNIDAZOLE 250 MG TABLET PO ×4 (08:44→20:28)
[2020-01-14] MEDS: ENOXAPARIN 40 MG/0.4 ML SYRINGE SUB-Q (08:44)
[2020-01-14] MEDS: PANTOPRAZOLE 40 MG TABLET PO (08:45)
[2020-01-14] MEDS: EUCERIN CREAM 120 GM JAR 1 APPLIC TOPICAL (08:45)
[2020-01-14] MEDS: SIMVASTATIN 20 MG TABLET 40 MG PO (08:45)
[2020-01-14] MEDS: INSULIN ASPART (*BKC) 100 UNITS/ML SUB-Q (12:17)
[2020-01-14 12:19] LABS: Glucose Point of Care 205 (65-105)
--- NOTE | 2020-01-14 15:34 | PM.IMPN ---
Progress Note: A&P Assessment and Plan (1) Septicemia: Code(s): A41.9 - Sepsis, unspecified organism Status: Acute Assessment and Plan: Present on admission with fevers, tachycardia and elevated WBC. Source intially felt related to PNA but consider urinary source. BCx growing EColi(2of2) sensitive to Rocephin. Urine culture growing 100K colonies non-uropathogenic gram positive MO felt to be contaminant. Source unclear but high suspicion for urinary source. RUQ showing GB absent. Can't get CT scan due to her size. Continue Rocephin. Home soon (2) Acute respiratory failure with hypoxemia: Code(s): J96.01 - Acute respiratory failure with hypoxia Status: Acute Assessment and Plan: ABG on admission showed a PO2 of 59 on room air. CXR mild infiltrate or atelectasis LLL and mild congestive changes. Stable on 1L. Apnea link showing AHI 12 and RI 16. Good UOP with Lasix IV. Continue the same today with extra dose tonight. Wean oxygen as tolerated (3) Pneumonia: Qualifiers: Laterality: bilateral Lung location: unspecified part of lung Pneumonia type: due to unspecified organism Qualified Code(s): J18.9 - Pneumonia, unspecified organism Code(s): J18.9 - Pneumonia, unspecified organism Status: Acute Assessment and Plan: As above with mild infiltrate left lower lobe. She does have elevated white count and O2 requirement. Concern for aspiration given the speech therapy findings. Diet adjusted. Continue speech therapy. Continue abx. Wean O2. (4) Acute renal failure: Qualifiers: Acute renal failure type: unspecified Qualified Code(s): N17.9 - Acute kidney failure, unspecified Code(s): N17.9 - Acute kidney failure, unspecified Status: Acute Assessment and Plan: Baseline Cr 1-1.1 back in 2018. Cr 1.5 here. She is tolerating IV Lasix with Cr at 1.1 today. Monitor renal function and urine output. (5) Leukocytosis: Qualifiers: Leukocytosis type: unspecified Qualified Code(s): D72.829 - Elevated white blood cell count, unspecified Code(s): D72.829 - Elevated white blood cell count, unspecified Status: Acute Assessment and Plan: White count again better today. Related to above. (6) Chronic anemia: Code(s): D64.9 - Anemia, unspecified Status: Chronic Assessment and Plan: Baseline hemoglobin 10-11 range. Hemoglobin 10 5 on admission but dropped to 9 range but stable today. No evidence of acute blood loss. Iron studies normal. Continue to follow periodically. (7) CHF (congestive heart failure): Code(s): I50.9 - Heart failure, unspecified Status: Acute Assessment and Plan: Uncompensated on admission. BNP 4340. Takes daily oral Lasix 40 mg with a potassium 20 mEq supplement at home but has been without her Lasix for the last 10-12 days. Lasix IV started with good UOP. Echo showing EF 60% with normal diastolic function. Rt sided failure? Cr better today with diuresis. Continue to monitor renal function, clinical exam and UOP. Extra dose Lasix tonight. (8) Diabetes mellitus: Code(s): E11.9 - Type 2 diabetes mellitus without complications Status: Acute Assessment and Plan: A1c 7.1. The patient's blood glucose was reviewed on 01/13 Glucose reasonably well controlled today. Continue AccuCheks covering with sliding scale. Hypoglycemia protocol available as needed. Continue to monitor. Continue Lantus and advance as needed . (9) Dysrhythmia: Code(s): I49.9 - Cardiac arrhythmia, unspecified Status: Acute Assessment and Plan: AFib noted by EKG on admission but felt to be incorrect with sinus mechanism on my review. Repeat EKG showing NSR. Tele showing 1st degree with occas skipped beats. There was 2nd degree Mobitz type 1 probably related to the ANILA but not noted now. Echo as above.
[2020-01-14 17:33] LABS: Glucose Point of Care 197 (65-105)
[2020-01-14] MEDS: INSULIN GLARGINE (*BKC) 100 UNITS/ML 10 UNITS SUB-Q (20:58)
[2020-01-14 21:30] LABS: Glucose Point of Care 225 (65-105)
[2020-01-15] VITALS (12 sets, daily range): BP systolic 126–137; BP diastolic 62–64; PULSE 64–79; RESP 18–20; TEMP 36.7–37; O2SAT 92–96
--- NOTE | 2020-01-15 00:40 | PC.NURSE ---
Rocephin dose given @2200 on 01/14/2020 per SHANNAN Marks
[2020-01-15 07:43] LABS: Hematocrit 29.6 % (37.0-47.0); Hemoglobin 9.6 g/dL (12.0-15.0); Mean Corpuscular HGB Conc 32.4 g/dl (32-36); Mean Corpuscular Hemoglobin 27.4 pg (26-34); Mean Corpuscular Volume 84.6 fl (80-100); Mean Platelet Volume 9.6 fl (7.4-10.4); Platelet Count Result 182 k/mm3 (150-375); Red Cell Distribution Width 15.4 % (11.5-14.5); White Blood Count 12.4 K/mm3 (4.5-10.0)
[2020-01-15 08:03] LABS: Anion Gap 1 mmol/L (8-16); Blood Urea Nitrogen 21 mg/dL (7-17); Calcium 9.1 mg/dL (8.4-10.2); Carbon Dioxide 39 mmol/L (22-30); Chloride 96 mmol/L (98-107); Estimated CRCL calculation 69 ml/min; Estimated Glomerular Filt Rate 59; Glucose 178 mg/dL (65-105); Potassium 3.6 mmol/L (3.4-5.0); Sodium 136 mmol/L (137-145)
[2020-01-15] MEDS: ASCORBIC ACID 250 MG TABLET PO (08:36)
[2020-01-15] MEDS: GABAPENTIN 300 MG CAPSULE PO ×3 (08:36→16:57)
[2020-01-15] MEDS: amLODIPine BESYLATE 5 MG TABLET 10 MG PO (08:37)
[2020-01-15] MEDS: ENOXAPARIN 40 MG/0.4 ML SYRINGE SUB-Q (08:37)
[2020-01-15] MEDS: ASPIRIN 81 MG ENTERIC TABLET PO (08:37)
[2020-01-15] MEDS: FUROSEMIDE INJ 40 MG/4 ML VIAL IV PUSH (08:37)
[2020-01-15] MEDS: CITALOPRAM HYDROBROMIDE 10 MG TABLET PO (08:38)
[2020-01-15] MEDS: metroNIDAZOLE 250 MG TABLET PO ×3 (08:38→16:57)
[2020-01-15] MEDS: EUCERIN CREAM 120 GM JAR 1 APPLIC TOPICAL (08:38)
[2020-01-15] MEDS: PANTOPRAZOLE 40 MG TABLET PO (08:38)
[2020-01-15] MEDS: SIMVASTATIN 20 MG TABLET 40 MG PO (08:39)
[2020-01-15 08:55] LABS: Glucose Point of Care 176 (65-105)
[2020-01-15] MEDS: ALBUTEROL SULFATE (*SP) AEROSOL 1 PUFF 2 PUFF INHALATION ×4 (09:45→21:58)
--- NOTE | 2020-01-15 10:04 | PM.DS ---
DS: Admitting Diagnosis Admitting Diagnosis Admitting Diagnosis: Pneumonia DS: Discharge Diagnosis Discharge Diagnosis (1) Septicemia: Code(s): A41.9 - Sepsis, unspecified organism Status: Acute Assessment and Plan: Present on admission with fevers, tachycardia and elevated WBC. Source initially felt related to PNA but consider urinary source. BCx growing EColi(2of2) sensitive to Rocephin. Urine culture growing 100K colonies non-uropathogenic gram positive MO felt to be contaminant. Source unclear but high suspicion for urinary source. RUQ showing GB absent. Can't get CT scan due to her size. Started on appropriate antibiotics on admission (01/09). Continue antibiotics for a 10 course. (2) Acute respiratory failure with hypoxemia: Code(s): J96.01 - Acute respiratory failure with hypoxia Status: Acute Assessment and Plan: ABG on admission showed a PO2 of 59 on room air. CXR mild infiltrate or atelectasis LLL and mild congestive changes. Stable on 1L. Apnea link showing AHI 12 and RI 16. Good UOP with Lasix IV. Abx started for potential PNA. Clinically improved. (3) Pneumonia: Qualifiers: Pneumonia type: due to unspecified organism Laterality: bilateral Lung location: unspecified part of lung Qualified Code(s): J18.9 - Pneumonia, unspecified organism Code(s): J18.9 - Pneumonia, unspecified organism Status: Acute Assessment and Plan: As above with mild infiltrate left lower lobe. She did elevated white count and O2 requirement. Concern for aspiration given the speech therapy findings. She was started on abx with benefit. Diet adjusted. We continued speech therapy. (4) Acute renal failure: Qualifiers: Acute renal failure type: unspecified Qualified Code(s): N17.9 - Acute kidney failure, unspecified Code(s): N17.9 - Acute kidney failure, unspecified Status: Acute Assessment and Plan: Baseline Cr 1-1.1 back in 2018. Cr 1.5 here. She tolerated IV Lasix with Cr at 1.1 today. (5) Leukocytosis: Qualifiers: Leukocytosis type: unspecified Qualified Code(s): D72.829 - Elevated white blood cell count, unspecified Code(s): D72.829 - Elevated white blood cell count, unspecified Status: Acute Assessment and Plan: White count elevated related to septicemia but trended down with appropriate treatment. (6) Chronic anemia: Code(s): D64.9 - Anemia, unspecified Status: Chronic Assessment and Plan: Baseline hemoglobin 10-11 range. Hemoglobin 10 5 on admission but dropped to 9 range but remained stable. No evidence of acute blood loss. Iron studies normal. (7) CHF (congestive heart failure): Code(s): I50.9 - Heart failure, unspecified Status: Acute Assessment and Plan: Uncompensated on admission. BNP 4340. Takes daily oral Lasix 40 mg with a potassium 20 mEq supplement at home but has been without her Lasix for the last 10-12 days. Lasix IV started with good UOP. Echo showing EF 60% with normal diastolic function. Rt sided failure? Cr improved in general with diuresis. Will resume home Lasix dose since decompensation due to being out of her meds. (8) Diabetes mellitus: Code(s): E11.9 - Type 2 diabetes mellitus without complications Status: Acute Assessment and Plan: A1c 7.1. The patient's blood glucose was monitored closely. Glucose was reasonably well controlled. We continued AccuCheks covering with sliding scale. Hypoglycemia protocol available as needed. We continued Lantus. (9) Dysrhythmia: Code(s): I49.9 - Cardiac arrhythmia, unspecified Status: Acute Assessment and Plan: AFib noted by EKG on admission but felt to be incorrect with sinus mechanism on my review. Repeat EKG showing NSR. Tele showing 1st degree with occas skipped beats. There was 2nd degree Mobitz type 1
--- NOTE | 2020-01-15 11:54 | PCNFU ---
Nutrition Follow-Up Complete: Inadequate Oral Intake as related to aphasic as evidenced by NPO Goal: Meet estimated nutritional needs Progressing towards goal. We will continue current goal. Pt current nutrition is Pureed, Level /DBCC with Mildly Thick liquids, Level 2. Nutrition recommendation: agree Last recorded weight is 166.6 kg, down from admit weight 174.7 kg. Bowel Motility: +BM 01/13. Labs Reviewed:Glu 178,K 136,Cr 1.10, Hgb 9.6, Hct 29.6 Meds Noted:Rocephin,Vit C, Lantus,Lasix,Protonix Additional Notes: Nutrition follow up today. Speech therapy working with patient today. MBS had been performed on 01/11 with Pureed, Level 4 and Mildly Thick liquids, Level 2 recommended. Patient is eating 95-100% of meals. Glucerna shakes added BID providing an additional 220 kcals and 10 gms protein 2/2 to wounds, stage 2 Pressure Ulcer reported on coccyx. Patient expressed she would like flavor chocolate for diet supplement. Diet office notified. Monitoring: Will monitor every 5 days.
--- NOTE | 2020-01-15 12:21 | PC.NURSE ---
Patient is turned and repositioned q 2hrs and bed changed as patient is incontinent of bowel and bladder. Patient tolerated well.
[2020-01-15 12:38] LABS: Glucose Point of Care 201 (65-105)
[2020-01-15] MEDS: INSULIN ASPART (*BKC) 100 UNITS/ML SUB-Q ×2 (13:11→18:43)
--- NOTE | 2020-01-15 17:37 | PC.NURSE ---
Talked with Dr. Choi regarding patient has been on Room Air for 3 hrs and saturations are in the 90s. 92% on Room air. Dr. Choi said he would discharge patient to home without oxygen.
[2020-01-15 17:51] LABS: Glucose Point of Care 227 (65-105)
== END 2020-01-15 22:23 | disposition home health service (06) | DRG 871 ==
LOC: ANHED 22:44 → ANH3MEDSUR 01-11 03:57
PROVIDERS: Nurse Practitioner; Admitting Provider Family Medicine; Emergency Provider Emergency Medicine; PCP Nurse Practitioner Family; Visit Provider Internal Medicine
DX: A41.51 Sepsis due to Escherichia coli [E. coli] (principal); J96.01 Acute respiratory failure with hypoxia; I69.351 Hemiplegia and hemiparesis following cerebral infarction affecting right dominant side; Z68.43 Body mass index [BMI] 50.0-59.9, adult; I69.320 Aphasia following cerebral infarction; E66.01 Morbid (severe) obesity due to excess calories; I10 Essential (primary) hypertension; E11.9 Type 2 diabetes mellitus without complications; D64.9 Anemia, unspecified; E11.65 Type 2 diabetes mellitus with hyperglycemia; I50.9 Heart failure, unspecified; E87.5 Hyperkalemia; Z20.828 Contact with and (suspected) exposure to other viral communicable diseases; D69.6 Thrombocytopenia, unspecified
CPT/HCPCS: 36415; 36600; 71045; 76705; 80048; 80053; 80069; 81001; 82375; 82550; 82553; 82728; 82805; 82948; 83036; 83050; 83540; 83550; 83605; 83615; 83735; 83880; 84100; 84443; 84484; 85025; 85027; 85055; 85610; 85730; 86140; 87040; 87077; 87086; 87088; 87186; 87635; 92526; 92610; 93005; 93970; 94640; 94762; 96365; 96366; 96375; 97110; 97162; 97165; 97530; 99285; A9270; C8929; C9803; J0696; J1100; J1335; J1650; J1815; J1940; J1956; J7030; J7120; Q9957; U0003

== ENCOUNTER 2021-06-15 05:39 | Inpatient (IN) | payer MEDICARE, BC, MEDICAID, SELFPAY ==
[2021-06-15] VITALS (9 sets, daily range): BP systolic 104–112; BP diastolic 62–88; PULSE 102–120; RESP 18–30; TEMP 36–37.8; O2SAT 91–95
--- NOTE | ~2021-06-15 | CT_ITS ---
EXAMINATION: CT abdomen pelvis w con DATE: 06/15/2021 08:30 INDICATION: Abdominal pain. TECHNIQUE: Computed tomography (CT) of the abdomen and pelvis was performed with 100 mL Omnipaque 350 intravenous contrast. Automated exposure control and iterative reconstruction technique were employe d. The dose-length product was 1890.28 mGy-cm. COMPARISON: CT abdomen and pelvis 04/23/2015 FINDINGS: The visualized portions of the lung bases demonstrated mild atelectasis. There are small pl eural effusions. Cardiomegaly is noted. No pericardial effusion. The liver and spleen are normal. The re are changes of cholecystectomy. The pancreas and right adrenal gland are normal. There is a 12 mm mass in left adrenal gland containing fat, consistent with a myelolipoma. There is cortical thinning of the kidneys. There is a 1.5 cm cyst in right kidney. There are greater than 10 stones in the right kidney and right renal pelvis measuring up to 10 mm. There is a 7 mm stone in proximal left ureter. There is severe left hydronephrosis. Stool distends the rectum. There are scattered diverticula in th e colon. The appendix is not visualized. There is free intraperitoneal gas in the anterior abdomen an d in a ventral hernia. There is prominent fat in the inguinal canals that may be hernias. There is a small volume of ascites. There is fat stranding in the body wall, consistent with edema. 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 There is moderate lumbar spondylosis. There is a filter in the inferior vena cava. IMPRESSION: 1. Free intraperitoneal gas. In the absence of recent surgery, this finding is consistent with perfor ated viscus. I called this result to Dr. Siddiqui. 2. Small volume of ascites. 3. 7 mm stone in proximal left ureter with severe left hydronephrosis. 4. Bilateral nonobstructing kidney stones. 5. Small pleural effusions. Reviewed, dictated and finalized at location A. IMPRESSION: 1. Free intraperitoneal gas. In the absence of recent surgery, this finding is consistent with perforated viscus. I called this result to Dr. Siddiqui. 2. Small volume of ascites. 3. 7 mm stone in proximal left ureter with severe left hydronephrosis. 4. Bilateral nonobstructing kidney stones. 5. Small pleural effusions.
--- NOTE | ~2021-06-15 | CT_ITS ---
EXAMINATION: CT abdomen pelvis wo con DATE: 06/18/2021 13:58 INDICATION: Perforated viscus. TECHNIQUE: Computed tomography (CT) of the abdomen and pelvis was performed without intravenous contr ast. Automated exposure control and iterative reconstruction technique were employed. The dose-length product was 2010.55 mGy-cm. COMPARISON: CT abdomen and pelvis 06/15/2021 FINDINGS: The visualized portions of the lung bases demonstrate small pleural effusions. There are de pendent airspace opacities in the lungs with volume loss, right worse than left, likely atelectasis. The heart size is normal. No pericardial effusion. The liver and spleen are normal. There are changes of cholecystectomy. There is free intraperitoneal gas, predominantly in the anterior abdomen. Calcif ications in the pancreas are consistent with chronic pancreatitis. The adrenal glands are normal. The re are numerous stones in right kidney and right renal pelvis measuring up to 10 mm. There are small stones in left kidney. There is mild atrophy of right kidney and moderate atrophy of left kidney. The re is severe left hydronephrosis. There is a 7 mm stone in proximal left ureter. There is diverticulo sis of the colon without evidence of diverticulitis. There are dilated loops of small bowel. The jones sverse colon is mildly distended. There is ascites adjacent to small bowel loops and in left paracoli c gutter. There are ventral hernias containing fat and gas. There is a filter in the inferior vena ca va. There are no pathologically enlarged lymph nodes. Body wall edema is noted. There is asymmetric e renita in right thigh. There is mild thoracolumbar spondylosis. IMPRESSION: 1. Persistent free intraperitoneal gas, consistent with perforated viscus. 2. Small volume of ascites adjacent to small bowel loops and in left paracolic gutter. 3. Dilated small and large bowel, consistent with adynamic ileus. 4. 7 mm stone in proximal left ureter with severe left hydronephrosis. 5. Small pleural effusions. Reviewed, dictated and finalized at location B.
--- NOTE | ~2021-06-15 | NM_ITS ---
EXAMINATION: ELIZABETH corcoran renal scan DATE: 06/17/2021 15:12 INDICATION: Hydronephrosis TECHNIQUE: 7.8 mCi Tc-99m MAG3 was administered IV. 40 mg furosemide was administered IV immediately afterward. The patient was scanned in the supine position. A posterior abdominal radionuclide angiog hoda was obtained. A subsequent time course of static images of the kidneys, ureters, and bladder was obtained. COMPARISON: CT abdomen and pelvis dated 06/15/2021 FINDINGS: The posterior abdominal radionuclide angiogram and sequential static images show normal size and posi tion of the bilateral kidneys. There is a central photopenic defect at the left renal hilum consisten t with hydronephrosis as seen on the earlier CT. Peak renal parenchymal uptake was 27.4 min in left k idney and 7.4 min in right kidney (normal peak 3-5 minutes). The relative early renal uptake was 33% on the left and 67% on the right (<40% is abnormal). No abnormalities of the ureters or bladder are seen. T1/2 for clearance of activity from the left kidney and proximal collecting system was indeterminate with continually rising renal activity curve through the 30 minutes of imaging. T1/2 for clearance of activity from the right kidney and proximal collecting system was 17 minutes. Notes on interpretation: T1/2 <10 minutes is normal, 10-15 minutes is low grade obstruction of questi onable clinical significance, 15-20 minutes is partial obstruction that is likely clinically signific ant, >20 minutes is high grade obstruction. Note that false positives may be seen with supine positio joanna, dehydration, severely dilated nonobstructed kidney, atonic collecting system, poor renal functi on, and chronic furosemide use. IMPRESSION: 1. Markedly delayed activity clearance from the left kidney consistent with high-grade obstruction. 2. Mildly delayed activity clearance from the right kidney consistent with partial obstruction which may be clinically significant. 3. Significantly decreased left renal function which comprises only 33% to total renal function. Reviewed, dictated and finalized at location A. IMPRESSION: 1. Markedly delayed activity clearance from the left kidney consistent with hi gh-grade obstruction. 2. Mildly delayed activity clearance from the right kidney consistent with part ial obstruction which may be clinically significant. 3. Significantly decreased left renal function which comprises only 33% to tota l renal function.
--- NOTE | 2021-06-15 05:44 | ECG_ITS ---
Measurements Intervals [place] Rate: 118 P: -43 FL: 202 QRS: -28 QRSD: 103 T: 52 QT: 374 QTc: 526 Interpretive Statements SINUS TACHYCARDIA LEFT ATRIAL ENLARGEMENT [-0.1mV P WAVE IN V1/V2] LEFT VENTRICULAR HYPERTROPHY [VOLTAGE CRITERIA PLUS LAE OR QRS WIDENING] POSSIBLE ANTERIOR MYOCARDIAL INFARCTION , PROBABLY OLD [30 ms Q WAVE IN V3/V4, OR R < 0.2 mV IN V4] ABNORMAL ECG COMPARED TO ECG 01/11/2020 12:08:30 SINUS TACHYCARDIA NOW PRESENT Electronically Signed On 06-15-2021 11:20:23 CDT by Héctor Long M.D.
--- NOTE | 2021-06-15 05:53 | ED.ABDPAIN ---
HPI - Abdominal Pain General Chief Complaint: Abdominal Pain <Ravinder Schwarz MD - Last Filed: 06/15/21 21:07> Stated Complaint: abd pain <Ravinder Schwarz MD - Last Filed: 06/15/21 21:07> Time Seen by Provider: 06/15/21 07:52 <Ravinder Schwarz MD - Last Filed: 06/15/21 21:07> Source: patient, family, RN notes reviewed and old records reviewed <Ravinder Schwarz MD - Last Filed: 06/15/21 21:07> Mode of arrival: EMS <Ravinder Schwarz MD - Last Filed: 06/15/21 21:07> Limitations: language barrier <Ravinder Schwarz MD - Last Filed: 06/15/21 21:07> History of Present Illness HPI narrative: 71-year-old obese female with history of CVA that is nonverbal at baseline presents to the emergency department for evaluation of nausea vomiting and 24 hours of abdominal pain. Patient lives at home and receives the majority of her medical care at home due to her body habitus. Family states that she has had 24 hours of abdominal pain with associated nausea and vomiting. Patient gestures to her entire abdomen as the site of the pain. Patient also reports some chest pain but denied any shortness of breath. <Ravinder Schwarz MD - Last Filed: 06/15/21 21:07> Related Data Home Medications: Home Medications Medication Instructions Recorded Confirmed amlodipine 10 mg PO DAILY 01/11/20 06/15/21 ascorbic acid (vitamin C) 250 mg PO DAILY 01/11/20 06/15/21 aspirin 81 mg PO DAILY 01/11/20 06/15/21 citalopram 10 mg PO DAILY 01/11/20 06/15/21 cyanocobalamin (vitamin B-12) 1,000 mcg IM MONTHLY 01/11/20 06/15/21 furosemide 40 mg PO DAILY 01/11/20 06/15/21 gabapentin 300 mg PO TID 01/11/20 06/15/21 glipizide 20 mg PO DAILY 01/11/20 06/15/21 lancets [OneTouch Delica Plus 01/11/20 06/15/21 Lancet] lancets [OneTouch UltraSoft 01/11/20 06/15/21 Lancets] omeprazole 20 mg PO DAILY 01/11/20 06/15/21 simvastatin 40 mg PO DAILY 01/11/20 06/15/21 albuterol sulfate [Proventil HFA] 2 puff INHALATION DAILY 06/15/21 06/15/21 ferrous sulfate 325 mg PO DAILY 06/15/21 06/15/21 ibuprofen 600 mg PO Q6H PRN 06/15/21 06/15/21 insulin glargine [Lantus U-100 72 unit SUBCUT HS 06/15/21 06/15/21 Insulin] mupirocin 1 applic TOPICAL TID 06/15/21 06/15/21 <Ravinder Schwarz MD - Last Filed: 06/15/21 21:07> Allergies/Adverse Reactions: Allergies Allergy/AdvReac Type Severity Reaction Status Date / Time Penicillins Allergy Intermediate Hives Verified 06/15/21 12:21 atorvastatin Allergy Unknown Unknown Verified 06/15/21 12:21 clarithromycin Allergy Unknown Unknown Verified 06/15/21 12:21 phenytoin Allergy Unknown Unknown Verified 06/15/21 12:21 <Ravinder Schwarz MD - Last Filed: 06/15/21 21:07> Review of Systems Review of Systems: see HPI <Ravinder Schwarz MD - Last Filed: 06/15/21 21:07> All systems reviewed & are unremarkable except as noted in HPI and below <Ravinder Schwarz MD - Last Filed: 06/15/21 21:07> ROS unobtainable: Yes unobtainable due to medical condition <Ravinder Schwarz MD - Last Filed: 06/15/21 21:07> [facility] Past Medical History Medical History: Medical History (Updated 06/15/21 @ 13:28 by JEROMY James) CHF (congestive heart failure) Diabetes mellitus H/O: HTN (hypertension) History of CVA with residual deficit <Ravinder Schwarz MD - Last Filed: 06/15/21 21:07> Family History Family History: Family History (Updated 06/15/21 @ 12:11 by Marie Blake RN) Mother Breast cancer Diabetes mellitus Father Diabetes mellitus Sibling Cerebrovascular accident Sibling Cerebrovascular accident <Ravinder Schwarz MD - Last Filed: 06/15/21 21:07> Social History Social History: Social History Smoking packs per day: 1 Smoking cigarettes per day: 20.0 Smoking status: Former smoker Second hand tobacco smoke exposure: No Additional smoking assessment comments: unsure of how long she
[2021-06-15] MEDS: SODIUM CHLORIDE 0.9% IV 1,000 ML 999 ML IV CONT (06:01)
[2021-06-15] MEDS: HYDROmorphone HCL INJ (*CRX) 1 MG/ML SYR 0.5 MG IV PUSH (06:01)
[2021-06-15] MEDS: ONDANSETRON INJ 4 MG/2 ML VIAL IV PUSH (06:01)
[2021-06-15 07:08] LABS: Bilirubin Urine 1+ (Negative); Blood Urine 3+ (Negative); Color Urine Yellow (Yellow); Glucose Urine UA Negative (Negative); Ketones Urine 1+ mg/dL (Negative); Leukocyte Esterase Ur Trace LEU/UL (Negative); Nitrate Urine Negative (Negative); Protein Urine 3+ mg/dL (Negative); Specific Grav Ur 1.025 (1.001-1.035)
[2021-06-15 07:09] LABS: Add Urine Microscopic? YES; Appearance Urine Sl Cloudy (Clear)
[2021-06-15 07:12] LABS: Bacteria Urine 3+ /hpf; Mucus Urine Few /lpf; RBC Urine >75 /hpf (0-2); Squamous Epithelial Cell Urine Many /hpf (Few); WBC Urine 21-30 /hpf
[2021-06-15 07:38] LABS: Hematocrit 48.9 % (37.0-47.0); Hemoglobin 15.1 g/dL (12.0-15.0); Mean Corpuscular HGB Conc 30.9 g/dl (32-36); Mean Corpuscular Hemoglobin 29.4 pg (26-34); Mean Corpuscular Volume 95.1 fl (80-100); Mean Platelet Volume 9.2 fl (7.4-10.4); Platelet Count Result 307 k/mm3 (150-375); Red Blood Count 5.14 M/mm3 (4.2-5.4); Red Cell Distribution Width 14.8 % (11.5-14.5); White Blood Count 8.4 K/mm3 (4.5-10.0)
[2021-06-15 07:47] LABS: Alanine Aminotransferase 17 U/L (4-35); Albumin Level 3.1 g/dL (3.5-5.1); Alkaline Phosphatase 80 U/L (38-126); Anion Gap 9 mmol/L (8-16); Aspartate Amino Transferase 21 U/L (14-36); Bilirubin,Total 1.9 mg/dL (0.2-1.3); Blood Urea Nitrogen 22 mg/dL (7-17); Calcium 8.5 mg/dL (8.4-10.2); Carbon Dioxide 23 mmol/L (22-30); Chloride 103 mmol/L (98-107); Estimated CRCL calculation 56 ml/min; Estimated Glomerular Filt Rate 45; Glucose 236 mg/dL (65-110); Lipase 23 U/L (23-300); Potassium 4.1 mmol/L (3.4-5.0); Sodium 135 mmol/L (137-145)
[2021-06-15 07:50] LABS: Lactic Acid Reflex 4.1 mmol/L (0.7-2.1)
[2021-06-15 08:01] LABS: Troponin I 0.019 ng/mL (0.000-0.034)
[2021-06-15 08:12] LABS: Band Neutrophils Percent 46 % (0-6); Lymphocytes Absolute Manual 1.51 K/mm3 (1.1-4.5); Metamyelocytes Percent 6 %; Monocytes Absolute Manual 0.42 K/mm3 (0.1-0.90); Monocytes Percent Manual 5 % (3-9); Neutrophils Absolute Manual 5.96 K/mm3 (1.7-7.2); Neutrophils Percent Manual 25 % (46-73); Total Cells Counted 100
[2021-06-15 08:13] LABS: Platelet Estimate Adequate (Adequate)
[2021-06-15] MEDS: metroNIDAZOLE 500 MG/ISO 100ML 500 MG/100 ML BAG 100 MG IVPB ×2 (09:24→18:08)
[2021-06-15 10:35] LABS: Reflex Lactic Acid Yes or No Add Lactic
--- NOTE | 2021-06-15 10:50 | ADMGEN ---
This patient, Susannah Husain, was admitted to Medical Room 253-01. Patient/family oriented to hospital policies and general routines including ID bracelet, bed and alarms, visiting hours, pain management, procedures, bathroom and other care routines, personal items, smoking policy, room service/diet, and visiting hours. Information on how to activate the Rapid Response Team has been discussed. Patient/Family are encouraged to report perceived risks to care and to ask questions if they do not understand what they are told or what they should do.
[2021-06-15] MEDS: SODIUM CHLORIDE 0.9% IV 1,000 ML 150 ML IV CONT (11:55)
--- NOTE | 2021-06-15 12:53 | PM.IMHP ---
H&P: HPI History of Present Illness Date/Time: 06/15/21 12:53 This is a 71-year-old female that presented to our emergency department with complaints of nausea and vomiting and abdominal pain. Patient has a past medical history of congestive heart failure, diabetes, hypertension, and CVA with residual. Patient does have aphasia due to her history of CVA according to her family members she developed abdominal pain with nausea vomiting yesterday that worsened. According to her family member patient vomit consisted the food that she ate earlier that day. She also notes the patient has experience dry heaving a couple times along with her abdominal pain and nausea vomiting she has experienced some shortness of breath. Vital signs 112/70, 112, 18, 95% on room air, WBCs 8.5, hemoglobin 15.1, hematocrit 48.9, platelets 307, sodium 135, potassium 4.1, BUN 22, creatinine 1.40, glucose 236, lactic acid 4.1, total bilirubin 1.9, AST 21, ALT 17, lipase 23, UA positive for protein, ketones, blood, bilirubin, urobilinogen, leukocyte Estrace, bacteria, CT of the abdomen indicates Free intraperitoneal gas consistent with perforated viscus, severe left hydronephrosis, ascites with pleural effusion and bilateral nonobstructive kidney stone EKG indicates sinus tach with a heart rate of 118. Patient be admitted for abdominal pain possibly secondary to perforation, hydronephrosis, pyelonephritis acute kidney injury. Patient continues to experience generalized abdominal pain with nausea no vomiting and shortness of breath. Chief Complaint: Abdominal pain and nausea vomiting Review of Systems Review of Systems: All systems reviewed & are unremarkable except as noted in HPI and below [facility] Past Medical History Medical History (Updated 06/15/21 @ 13:28 by ROME JamesC) CHF (congestive heart failure) Diabetes mellitus H/O: HTN (hypertension) History of CVA with residual deficit Family History Family History (Updated 06/15/21 @ 12:11 by Marie Blake RN) Mother Breast cancer Diabetes mellitus Father Diabetes mellitus Sibling Cerebrovascular accident Sibling Cerebrovascular accident Social History Social History Smoking packs per day: 1 Smoking cigarettes per day: 20.0 Smoking status: Former smoker Second hand tobacco smoke exposure: No Additional smoking assessment comments: unsure of how long she smoked for Alcohol intake: never Substance use: never Substance use type: does not use Spiritual care concerns: No Meds Home Medications and Allergies Home Medications Medication Instructions Recorded Confirmed Type amlodipine 10 mg PO DAILY 01/11/20 06/15/21 History ascorbic acid (vitamin C) 250 mg PO DAILY 01/11/20 06/15/21 History aspirin 81 mg PO DAILY 01/11/20 06/15/21 History citalopram 10 mg PO DAILY 01/11/20 06/15/21 History cyanocobalamin (vitamin B-12) 1,000 mcg IM MONTHLY 01/11/20 06/15/21 History furosemide 40 mg PO DAILY 01/11/20 06/15/21 History gabapentin 300 mg PO TID 01/11/20 06/15/21 History glipizide 20 mg PO DAILY 01/11/20 06/15/21 History lancets [OneTouch Delica Plus 01/11/20 06/15/21 History Lancet] lancets [OneTouch UltraSoft 01/11/20 06/15/21 History Lancets] omeprazole 20 mg PO DAILY 01/11/20 06/15/21 History simvastatin 40 mg PO DAILY 01/11/20 06/15/21 History lanolin toquusm-hj-k.pet-ceres 1 applic TOPICAL QAM #454 g 01/15/20 06/15/21 Rx [Minerin Creme] nystatin 1 applic TOPICAL BID #15 g 01/15/20 06/15/21 Rx albuterol sulfate [Proventil HFA] 2 puff INHALATION DAILY 06/15/21 06/15/21 History ferrous sulfate 325 mg PO DAILY 06/15/21 06/15/21 History ibuprofen 600 mg PO Q6H PRN 06/15/21 06/15/21 History insulin glargine [Lantus U-100 72 unit SUBCUT HS 06/15/21 06/15/21 History Insulin] mupirocin 1 applic TOPICAL TID 06/15/21 06/15/21 History Allergies Allergy/AdvReac Type Severity Reaction Status Date / Time [facility]
[2021-06-15 13:35] LABS: NT Pro B Type Natriuretic Pept 1160 pg/mL (5-100)
[2021-06-15] MEDS: PROCHLORPERAZINE EDISYLATE 10 MG/2 ML VIAL IV PUSH (14:29)
[2021-06-15] MEDS: DEXTROSE 5%/0.9% SOD CHL 1,000 ML 75 ML IV CONT (15:23)
[2021-06-15 16:30] LABS: Glucose Point of Care 214 mg/dl (65-105)
[2021-06-15] MEDS: INSULIN ASPART (*BKC) 100 UNITS/ML SUB-Q (18:07)
[2021-06-15] MEDS: TOLNAFTATE 1% POWDER 45 GM BTL 1 APPLIC TOPICAL (20:35)
[2021-06-15 20:44] LABS: Glucose Point of Care 218 mg/dl (65-105)
[2021-06-16] VITALS (10 sets, daily range): BP systolic 114–140; BP diastolic 43–77; PULSE 122–124; RESP 18–22; TEMP 35.9–37.9; O2SAT 90–95
[2021-06-16] MEDS: metroNIDAZOLE 500 MG/ISO 100ML 500 MG/100 ML BAG 100 MG IVPB ×3 (01:32→17:58)
[2021-06-16 01:38] LABS: Glucose Point of Care 230 mg/dl (65-105)
[2021-06-16] MEDS: HYDROmorphone HCL INJ (*CRX) 1 MG/ML SYR 0.5 MG IV PUSH (03:38)
[2021-06-16 05:48] LABS: Hematocrit 43.6 % (37.0-47.0); Hemoglobin 14.2 g/dL (12.0-15.0); Mean Corpuscular HGB Conc 32.6 g/dl (32-36); Mean Corpuscular Hemoglobin 29.5 pg (26-34); Mean Corpuscular Volume 90.5 fl (80-100); Mean Platelet Volume 9.5 fl (7.4-10.4); Platelet Count Result 249 k/mm3 (150-375); Red Blood Count 4.82 M/mm3 (4.2-5.4); White Blood Count 13.3 K/mm3 (4.5-10.0)
[2021-06-16 05:59] LABS: Lactic Acid Reflex 2.5 mmol/L (0.7-2.1)
[2021-06-16 06:11] LABS: Alanine Aminotransferase 14 U/L (4-35); Albumin Level 2.8 g/dL (3.5-5.1); Alkaline Phosphatase 73 U/L (38-126); Anion Gap 7 mmol/L (8-16); Aspartate Amino Transferase 17 U/L (14-36); Bilirubin,Total 0.8 mg/dL (0.2-1.3); Blood Urea Nitrogen 34 mg/dL (7-17); Carbon Dioxide 25 mmol/L (22-30); Chloride 103 mmol/L (98-107); Estimated CRCL calculation 33 ml/min; Estimated Glomerular Filt Rate 24; Glucose 223 mg/dL (65-110); Magnesium 1.8 mg/dL (1.6-2.3); Potassium 4.5 mmol/L (3.4-5.0); Sodium 135 mmol/L (137-145)
[2021-06-16] MEDS: DEXTROSE 5%/0.9% SOD CHL 1,000 ML 75 ML IV CONT ×2 (06:16→23:30)
[2021-06-16 07:15] LABS: Hemoglobin A1C 5.7 % (<5.7)
[2021-06-16 07:24] LABS: Band Neutrophils Percent 29 % (0-6); Eosinophils Absolute Manual 0.13 K/mm3 (0.02-0.5); Eosinophils Percent Manual 1 % (0-4); Lymphocytes Absolute Manual 1.59 K/mm3 (1.1-4.5); Metamyelocytes Percent 4 %; Monocytes Absolute Manual 3.19 K/mm3 (0.1-0.90); Monocytes Percent Manual 24 % (3-9); Neutrophils Absolute Manual 7.84 K/mm3 (1.7-7.2); Neutrophils Percent Manual 30 % (46-73); Total Cells Counted 100
[2021-06-16 07:25] LABS: Platelet Estimate Adequate (Adequate)
[2021-06-16 07:49] LABS: Glucose Point of Care 209 mg/dl (65-105)
[2021-06-16] MEDS: INSULIN ASPART (*BKC) 100 UNITS/ML SUB-Q (07:49)
[2021-06-16] MEDS: PANTOPRAZOLE SODIUM IV 40 MG VIAL IV PUSH (08:15)
[2021-06-16] MEDS: TOLNAFTATE 1% POWDER 45 GM BTL 1 APPLIC TOPICAL ×2 (08:15→20:35)
[2021-06-16] MEDS: EUCERIN CREAM 120 GM JAR 1 APPLIC TOPICAL ×2 (08:16→17:55)
[2021-06-16 08:44] LABS: Reflex Lactic Acid Yes or No Add Lactic
[2021-06-16 09:31] LABS: Lactic Acid 2.5 mmol/L (0.7-2.1)
[2021-06-16 11:32] LABS: Glucose Point of Care 184 mg/dl (65-105)
--- NOTE | 2021-06-16 13:20 | P.PNIM_ITS ---
Progress Note: A&P Assessment and Plan (1) Abdominal pain: Qualifiers: Abdominal location: generalized Qualified Code(s): R10.84 - Generalized abdominal pain Code(s): R10.9 - Unspecified abdominal pain Status: Acute Assessment and Plan: * Possibly secondary to perforated abdomen and pyelonephritis * Continue pain medication * Remain NPO * Urology and surgery consulted * Awaiting recommendations 06/16/2021 Interval history: 71-year-old female presented with complaint abdomi nal pain nausea and vomiting CT scan of the abdomen showed perforated viscus patient started on Levaquin and Flagyl, also patient has and patient be seen by surgery service further recommendation to follow, and also has severe left hydronephrosis and concerning for pyelonephritis will follow-up on urine culture with identification and sensitivity, be seen by urology service and further recommendation to follow, her daughter is present in the room, remains clinically stable feels better than when she came in, will continue to monitor and further recommendation to follow (2) Vomiting: Qualifiers: Nausea presence: with nausea Vomiting type: unspecified Qualified Code(s): R11.2 - Nausea with vomiting, unspecified Code(s): R11.10 - Vomiting, unspecified Status: Acute Assessment and Plan: * Continue Zofran and Compazine if Zofran is not effective (3) Perforated abdominal viscus: Code(s): R19.8 - Other specified symptoms and signs involving the digestive system and abdomen Status: Acute Assessment and Plan: * Imaging indicates Free intraperitoneal gas possibly secondary to a perforated viscus * Surgery consulted awaiting recommendations thank you for the care this patient * Patient started on Levaquin and Flagyl * Patient WBC within normal limits afebrile with elevated lactic acid (4) Pleural effusion: Code(s): J90 - Pleural effusion, not elsewhere classified Status: Acute Assessment and Plan: * Imaging indicates a small pleural effusion (5) History of CVA with residual deficit: Code(s): I69.30 - Unspecified sequelae of cerebral infarction Status: Acute (6) Diabetes mellitus: Code(s): E11.9 - Type 2 diabetes mellitus without complications Status: Acute Assessment and Plan: * Patient currently NPO * Patient receiving D5 IV fluid with low-dose sliding scale * Glucose below 300 * Will continue Accu-Cheks (7) CHF (congestive heart failure): Code(s): I50.9 - Heart failure, unspecified Status: Acute Assessment and Plan: * Lasix 40 mg daily on hold * BNP pending * Will cautiously hydrate patient (8) Acute renal failure: Qualifiers: Acute renal failure type: unspecified Qualified Code(s): N17.9 - Acute kidney failure, unspecified Code(s): N17.9 - Acute kidney failure, unspecified Status: Acute Assessment and Plan: * Acute on chronic * Possibly secondary to hydronephrosis and infection * BUN/creatinine 22/1.40, baseline appears to be 22-30 /1.30-1.40 * Avoid nephrotoxins agent * Renal dose medications (9) HTN (hypertension): Code(s): I10 - Essential (primary) hypertension Status: Acute Assessment and Plan: * Soft * Patient NPO home medication on hold * Patient takes amlodipine 10 mg daily will resume when appropriate * Vital signs as ordered * Will adjust medication as needed (10) Pyelonephritis: Code(s): N12 - Tubulo-interstitial nephritis, not specified as acute or chronic St
--- NOTE | 2021-06-16 13:20 | PM.IMPN ---
Progress Note: A&P Assessment and Plan (1) Abdominal pain: Qualifiers: Abdominal location: generalized Qualified Code(s): R10.84 - Generalized abdominal pain Code(s): R10.9 - Unspecified abdominal pain Status: Acute Assessment and Plan: Possibly secondary to perforated abdomen and pyelonephritis Continue pain medication Remain NPO Urology and surgery consulted Awaiting recommendations 06/16/2021 Interval history: 71-year-old female presented with complaint abdominal pain nausea and vomiting CT scan of the abdomen showed perforated viscus patient started on Levaquin and Flagyl, also patient has and patient be seen by surgery service further recommendation to follow, and also has severe left hydronephrosis and concerning for pyelonephritis will follow-up on urine culture with identification and sensitivity, be seen by urology service and further recommendation to follow, her daughter is present in the room, remains clinically stable feels better than when she came in, will continue to monitor and further recommendation to follow (2) Vomiting: Qualifiers: Nausea presence: with nausea Vomiting type: unspecified Qualified Code(s): R11.2 - Nausea with vomiting, unspecified Code(s): R11.10 - Vomiting, unspecified Status: Acute Assessment and Plan: Continue Zofran and Compazine if Zofran is not effective (3) Perforated abdominal viscus: Code(s): R19.8 - Other specified symptoms and signs involving the digestive system and abdomen Status: Acute Assessment and Plan: Imaging indicates Free intraperitoneal gas possibly secondary to a perforated viscus Surgery consulted awaiting recommendations thank you for the care this patient Patient started on Levaquin and Flagyl Patient WBC within normal limits afebrile with elevated lactic acid (4) Pleural effusion: Code(s): J90 - Pleural effusion, not elsewhere classified Status: Acute Assessment and Plan: Imaging indicates a small pleural effusion (5) History of CVA with residual deficit: Code(s): I69.30 - Unspecified sequelae of cerebral infarction Status: Acute (6) Diabetes mellitus: Code(s): E11.9 - Type 2 diabetes mellitus without complications Status: Acute Assessment and Plan: Patient currently NPO Patient receiving D5 IV fluid with low-dose sliding scale Glucose below 300 Will continue Accu-Cheks (7) CHF (congestive heart failure): Code(s): I50.9 - Heart failure, unspecified Status: Acute Assessment and Plan: Lasix 40 mg daily on hold BNP pending Will cautiously hydrate patient (8) Acute renal failure: Qualifiers: Acute renal failure type: unspecified Qualified Code(s): N17.9 - Acute kidney failure, unspecified Code(s): N17.9 - Acute kidney failure, unspecified Status: Acute Assessment and Plan: Acute on chronic Possibly secondary to hydronephrosis and infection BUN/creatinine 22/1.40, baseline appears to be 22-30 /1.30-1.40 Avoid nephrotoxins agent Renal dose medications (9) HTN (hypertension): Code(s): I10 - Essential (primary) hypertension Status: Acute Assessment and Plan: Soft Patient NPO home medication on hold Patient takes amlodipine 10 mg daily will resume when appropriate Vital signs as ordered Will adjust medication as needed (10) Pyelonephritis: Code(s): N12 - Tubulo-interstitial nephritis, not specified as acute or chronic Status: Acute Assessment and Plan: UA positive for leukocytes, protein, nitrites, and RBCs UA culture pending Continue Levaquin and Flagyl D1 Patient afebrile with normal WBCs 4 elevated lactic acid 4.1>3.0 (11) Hydronephrosis: Code(s): N13.30 - Unspecified hydronephrosis Status: Acute Assessment and Plan: Imaging indicates severe left hydronephrosis with a 7 mm stone in
--- NOTE | 2021-06-16 15:01 | WPDURCON ---
Assessment and Plan Assessment and plan (1) Hydronephrosis: Code(s): N13.30 - Unspecified hydronephrosis Status: Acute (2) Pyelonephritis: Code(s): N12 - Tubulo-interstitial nephritis, not specified as acute or chronic Status: Acute Assessment and Plan: Urine culture was clean catch and appears to be contaminated, therefore she should have a catheter sample, but she is on Levaquin and Flagyl currently. We will hold off on re-culturing at this time. Continue IV antibiotics. (3) Ureterolithiasis: Code(s): N20.1 - Calculus of ureter Status: Acute Assessment and Plan: The stone in her left proximal ureter is measuring at 7mm, which is causing hydronephrosis. Her creatinine is rising I suspect d/t the obstructing stone. I had a long conversation with her daughter at the bedside explaining that we could place a stent if general surgery simultaneously wishes to address her perforated viscus, otherwise with her current state of health and BMI, she is a high risk of surgical complications. The daughter has not yet decided if she wants the patient to be placed on hospice or to intervene. She will call the patient's brother who is an MD and discuss this with him before deciding. At this time we will await the families decision and proceed from there. Her daughter is aware of the risks of intervention versus not intervening and knows that without treatment of an obstructing stone kidney may occur. (4) Bilateral renal stones: Code(s): N20.0 - Calculus of kidney Status: Acute Assessment and Plan: Non obstructive, no plans to intervene. Urology Consult Note HPI Date Seen: 06/16/21 Requesting Physician: Gracia Greenberg MD Primary Care Provider: Beata Stone Consult Narrative Narrative: Susannah Husain is a 71 year old female who was admitted yesterday from the ED for further evaluation of a perforated viscus and a 7mm obstructing stone on CT from yesterday. She was seen initially in the ED for acute onset nausea, vomiting and abdominal pain. She lives at home with her family and is cared for by them. She is obese, bed bound and aphasic. She has a WBC of 13.3 (increased from yesterday when it was 8.4), creatinine of 2.4 (which is increased from yesterday when it was 1.4),as well as a UA that suggests a UTI (more likely to be contaminated since she is bed bound and it was a clean catch). She is also tachycardic. Her daughter is at the bedside today and provided her medical history as the patient is unable to communicate. THe daughter states she is normally much more alert and interactive than she currently is in bed today. CT reveals a free intraperitoneal gas. In the absence of recent surgery, this finding is consistent with perforated viscus, a 7 mm stone in proximal left ureter with severe left hydronephrosis and bilateral nonobstructing kidney stones. Review of Systems Review of Systems: ROS unobtainable: Yes unobtainable due to medical condition PMFSH Past Medical History Medical History CHF (congestive heart failure) Diabetes mellitus H/O: HTN (hypertension) History of CVA with residual deficit Family History Family History Mother Breast cancer Diabetes mellitus Father Diabetes mellitus Sibling Cerebrovascular accident Sibling Cerebrovascular accident Social History Social History Smoking packs per day: 1 Smoking cigarettes per day: 20.0 Smoking status: Former smoker Second hand tobacco smoke exposure: No Additional smoking assessment comments: unsure of how long she smoked for Alcohol intake: never Substance use: never Substance use type: does not use Spiritual care concerns: No Meds Home Medications and Allergies Home Medications Medication Instruc
[2021-06-16 17:55] LABS: Glucose Point of Care 132 mg/dl (65-105)
[2021-06-16] MEDS: FUROSEMIDE INJ 40 MG/4 ML VIAL IV PUSH (17:57)
[2021-06-16 20:38] LABS: Glucose Point of Care 118 mg/dl (65-105)
[2021-06-17] VITALS (9 sets, daily range): BP systolic 119–145; BP diastolic 54–102; PULSE 110–121; RESP 20–21; TEMP 37.3–37.7; O2SAT 92–94
[2021-06-17] MEDS: metroNIDAZOLE 500 MG/ISO 100ML 500 MG/100 ML BAG 100 MG IVPB ×3 (01:15→17:39)
[2021-06-17 01:24] LABS: Glucose Point of Care 127 mg/dl (65-105)
[2021-06-17 05:38] LABS: Hematocrit 41.5 % (37.0-47.0); Hemoglobin 13.9 g/dL (12.0-15.0); Mean Corpuscular HGB Conc 33.5 g/dl (32-36); Mean Corpuscular Hemoglobin 29.8 pg (26-34); Mean Corpuscular Volume 88.9 fl (80-100); Mean Platelet Volume 9.8 fl (7.4-10.4); Platelet Count Result 204 k/mm3 (150-375); Red Blood Count 4.67 M/mm3 (4.2-5.4); Red Cell Distribution Width 15.4 % (11.5-14.5)
[2021-06-17 05:54] LABS: Alanine Aminotransferase 13 U/L (4-35); Albumin Level 2.6 g/dL (3.5-5.1); Alkaline Phosphatase 79 U/L (38-126); Anion Gap 7 mmol/L (8-16); Aspartate Amino Transferase 22 U/L (14-36); Bilirubin,Total 0.6 mg/dL (0.2-1.3); Blood Urea Nitrogen 46 mg/dL (7-17); Calcium 8.1 mg/dL (8.4-10.2); Carbon Dioxide 25 mmol/L (22-30); Chloride 106 mmol/L (98-107); Estimated CRCL calculation 29 ml/min; Estimated Glomerular Filt Rate 20; Glucose 115 mg/dL (65-110); Magnesium 1.9 mg/dL (1.6-2.3); Sodium 138 mmol/L (137-145)
[2021-06-17 07:42] LABS: Glucose Point of Care 86 mg/dl (65-105)
[2021-06-17] MEDS: TOLNAFTATE 1% POWDER 45 GM BTL 1 APPLIC TOPICAL ×2 (08:30→20:43)
[2021-06-17] MEDS: EUCERIN CREAM 120 GM JAR 1 APPLIC TOPICAL ×2 (08:30→16:50)
[2021-06-17] MEDS: PANTOPRAZOLE SODIUM IV 40 MG VIAL IV PUSH (08:31)
[2021-06-17 11:40] LABS: Glucose Point of Care 69 mg/dl (65-105)
--- NOTE | 2021-06-17 12:03 | WPDUROPN2 ---
Progress Note: A&P Assessment and Plan (1) Bilateral renal stones: Code(s): N20.0 - Calculus of kidney Status: Acute Assessment and Plan: No intervention needed at this time. (2) Hydronephrosis: Code(s): N13.30 - Unspecified hydronephrosis Status: Acute Assessment and Plan: Likely chronic, Creatinine is stable. Not planning to intervene at this time. THe patient is stable and the family agrees that if a stent isn't necessary they do not want it to be done. (3) Pyelonephritis: Code(s): N12 - Tubulo-interstitial nephritis, not specified as acute or chronic Status: Acute Assessment and Plan: Urine culture is contaminated, she would need a catheter culture if it needs to be repeated, however she seems to be responding to antibiotics at this time, therefore we can hold of on a repeat urine culture. Subjective Subjective Date/Time Seen: 06/17/21 12:03 The patient is doing ok today. She is relatively stable, her creatinine has stabilized and is at 2.8, up from only 2.4 yesterday. WBC is improved as well today to 12.0, she remains tachycardic. Urine culture is contaminated, she remains on IV antibiotics. Daughter is at bedside today and states she discussed the stent with her uncle and they stated that if it needed to be done they were ok with that. Dr. Gonsales discussed with them yesterday that the stone was likely chronic and placing a stent would likely not improve her overall health at this time. Review of Systems Review of Systems: ROS unobtainable: Yes unobtainable due to medical condition Exam Resp: Effort & Inspection: normal respiratory effort Cardio: Rate: tachycardic GI: GI Palp: Yes Soft to palpation and No Tenderness to palpation present (GI) : General: Yes no CVA tenderness Extrem: General: edema (bilateral) Objective Data Vital Signs Vital Signs: Vital Signs - 24 hr 06/16/21 14:00 06/16/21 20:00 06/16/21 20:46 Temperature 99 F 100.2 F H Pulse Rate 123 H 122 H 122 H Respiratory Rate 20 18 18 Blood Pressure 137/61 140/43 L Pulse Oximetry 94 90 90 06/16/21 21:32 06/16/21 22:02 06/17/21 00:18 Temperature 100.2 F H 99.3 F 99.3 F Pulse Rate Respiratory Rate Blood Pressure Pulse Oximetry 06/17/21 04:03 06/17/21 04:14 06/17/21 04:44 Temperature 99.9 F H 99.9 F H 99.3 F Pulse Rate 120 H Respiratory Rate 20 Blood Pressure 135/54 L Pulse Oximetry 92 Intake/Output Intake/Output: Intake & Output 06/14/21 06/15/21 06/16/21 06/17/21 23:59 23:59 23:59 23:59 Intake Total 1450 2550 450 Output Total 500 350 200 Balance 950 2200 250 Meds/Results Medications: Active Medications Generic Name Dose Route Start Last Admin Trade Name Freq PRN Reason Stop Dose Admin Dextrose 12.5 gm 06/15/21 13:42 Dextrose 50% 25 Gm/50 Ml Syringe IV PUSH PRN PRN Hypoglycemia Protocol Glucagon 1 mg 06/15/21 13:42 Glucagon For Inj 1 Mg Vial IM PRN PRN Hypoglycemia Protocol Glucose 15 gm 06/15/21 13:42 Glucose Oral Gel 15 Gm Of Glucse In 37.5 Gm Tube PO PRN PRN Hypoglycemia Protocol Hydralazine HCl 10 mg 06/15/21 13:07 Hydralazine Hcl 20 Mg/Ml Vial IV PUSH Q8H PRN Blood Pressure - High Hydromorphone HCl 0.5 mg 06/15/21 08:54 06/16/21 03:38 Hydromorphone Hcl Inj (*Crx) 1 Mg/Ml Syr IV PUSH 0.5 mg Q4H PRN Administration Pain Rated 7-10 Metronidazole 500 mg in 100 mls @ 100 mls/hr 06/15/21 18:00 06/17/21 11:10 Flagyl 500 Mg/Iso Soln 100 Ml IVPB Infused Q8H JESSE Infusion Levofloxacin/Dextrose 750 mg in 150 mls @ 100 mls/hr 06/16/21 09:00 06/17/21 10:00 Levaquin 750 Mg/D5w 150 Ml IVPB Infused Q24H JESSE Infusion Dextrose/Sodium Chloride 1,000 mls @ 75 mls/hr 06/15/21 13:40 06/17/21 11:10 Dextrose 5% Sodium Chloride 0.9% IV CONT 75 mls/hr .[id number] JESSE Infusion Dextrose 1,000 mls @ 100 mls/hr 06/15/
[2021-06-17] MEDS: HYDROmorphone HCL INJ (*CRX) 1 MG/ML SYR 0.5 MG IV PUSH (12:06)
[2021-06-17] MEDS: DEXTROSE 50% 25 GM/50 ML SYRINGE IV PUSH ×2 (12:07→16:33)
[2021-06-17 12:57] LABS: Glucose Point of Care 97 mg/dl (65-105)
[2021-06-17] MEDS: FUROSEMIDE INJ 40 MG/4 ML VIAL IV PUSH (13:56)
--- NOTE | 2021-06-17 14:59 | PM.IMPN ---
Progress Note: A&P Assessment and Plan (1) Abdominal pain: Qualifiers: Abdominal location: generalized Qualified Code(s): R10.84 - Generalized abdominal pain Code(s): R10.9 - Unspecified abdominal pain Status: Acute Assessment and Plan: Possibly secondary to perforated abdomen and pyelonephritis Continue pain medication Remain NPO Urology and surgery consulted Awaiting recommendations 06/16/2021 Interval history: 71-year-old female presented with complaint abdominal pain nausea and vomiting CT scan of the abdomen showed perforated viscus patient started on Levaquin and Flagyl, also patient has and patient be seen by surgery service further recommendation to follow, and also has severe left hydronephrosis and concerning for pyelonephritis will follow-up on urine culture with identification and sensitivity, be seen by urology service and further recommendation to follow, her daughter is present in the room, remains clinically stable feels better than when she came in, will continue to monitor and further recommendation to follow 06/17 Interval history: 71-year-old female presented with complaint abdominal pain nausea and vomiting CT scan of the abdomen showed perforated viscus patient started on Levaquin and Flagyl, also patient has and patient be seen by surgery service further recommendation to follow, and also has severe left hydronephrosis and concerning for pyelonephritis will follow-up on urine culture with identification and sensitivity, be seen by urology service and further recommendation to follow, her daughter is present in the room, remains clinically stable feels better than when she came in, will continue to monitor and further recommendation to follow (2) Vomiting: Qualifiers: Nausea presence: with nausea Vomiting type: unspecified Qualified Code(s): R11.2 - Nausea with vomiting, unspecified Code(s): R11.10 - Vomiting, unspecified Status: Acute Assessment and Plan: Continue Zofran and Compazine if Zofran is not effective (3) Perforated abdominal viscus: Code(s): R19.8 - Other specified symptoms and signs involving the digestive system and abdomen Status: Acute Assessment and Plan: Imaging indicates Free intraperitoneal gas possibly secondary to a perforated viscus Surgery consulted awaiting recommendations thank you for the care this patient Patient started on Levaquin and Flagyl Patient WBC within normal limits afebrile with elevated lactic acid (4) Pleural effusion: Code(s): J90 - Pleural effusion, not elsewhere classified Status: Acute Assessment and Plan: Imaging indicates a small pleural effusion (5) History of CVA with residual deficit: Code(s): I69.30 - Unspecified sequelae of cerebral infarction Status: Acute (6) Diabetes mellitus: Code(s): E11.9 - Type 2 diabetes mellitus without complications Status: Acute Assessment and Plan: Patient currently NPO Patient receiving D5 IV fluid with low-dose sliding scale Glucose below 300 Will continue Accu-Cheks (7) CHF (congestive heart failure): Code(s): I50.9 - Heart failure, unspecified Status: Acute Assessment and Plan: Lasix 40 mg daily on hold BNP pending Will cautiously hydrate patient (8) Acute renal failure: Qualifiers: Acute renal failure type: unspecified Qualified Code(s): N17.9 - Acute kidney failure, unspecified Code(s): N17.9 - Acute kidney failure, unspecified Status: Acute Assessment and Plan: Acute on chronic Possibly secondary to hydronephrosis and infection BUN/creatinine 22/1.40, baseline appears to be 22-30 /1.30-1.40 Avoid nephrotoxins agent Renal dose medications (9) HTN (hypertension): Code(s): I10 - Essential (primary) hypertension Status: Acute Assessment and Plan: Soft Patient NPO home medication on hold
[2021-06-17 16:21] LABS: Glucose Point of Care 62 mg/dl (65-105)
[2021-06-17 17:24] LABS: Glucose Point of Care 98 mg/dl (65-105)
[2021-06-17] MEDS: DEXTROSE 5%/0.9% SOD CHL 1,000 ML 75 ML IV CONT (17:34)
[2021-06-18 00:28] LABS: Glucose Point of Care 65 mg/dl (65-105)
[2021-06-18] MEDS: DEXTROSE 50% 25 GM/50 ML SYRINGE IV PUSH ×3 (00:30→17:22)
[2021-06-18] MEDS: metroNIDAZOLE 500 MG/ISO 100ML 500 MG/100 ML BAG 100 MG IVPB ×3 (01:08→17:22)
[2021-06-18 02:44] LABS: Glucose Point of Care 81 mg/dl (65-105)
[2021-06-18] MEDS: DEXTROSE 10% 1,000 ML 75 ML IV CONT ×2 (02:52→19:57)
[2021-06-18 03:56] VITALS: BP 135/66; PULSE 112; RESP 22; TEMP 37.1; O2SAT 94
[2021-06-18 04:51] LABS: Hematocrit 40.8 % (37.0-47.0); Hemoglobin 13.1 g/dL (12.0-15.0); Mean Corpuscular HGB Conc 32.1 g/dl (32-36); Mean Corpuscular Hemoglobin 28.6 pg (26-34); Mean Corpuscular Volume 89.1 fl (80-100); Platelet Count Result 161 k/mm3 (150-375); Red Blood Count 4.58 M/mm3 (4.2-5.4); Red Cell Distribution Width 15.3 % (11.5-14.5); White Blood Count 8.9 K/mm3 (4.5-10.0)
[2021-06-18 05:00] LABS: Alanine Aminotransferase 11 U/L (4-35); Albumin Level 2.5 g/dL (3.5-5.1); Alkaline Phosphatase 65 U/L (38-126); Anion Gap 7 mmol/L (8-16); Aspartate Amino Transferase 20 U/L (14-36); Bilirubin,Total 0.6 mg/dL (0.2-1.3); Blood Urea Nitrogen 47 mg/dL (7-17); Calcium 8.2 mg/dL (8.4-10.2); Carbon Dioxide 24 mmol/L (22-30); Chloride 110 mmol/L (98-107); Estimated CRCL calculation 38 ml/min; Estimated Glomerular Filt Rate 28; Glucose 80 mg/dL (65-110); Potassium 3.4 mmol/L (3.4-5.0); Sodium 141 mmol/L (137-145)
[2021-06-18 05:36] LABS: Glucose Point of Care 77 mg/dl (65-105)
[2021-06-18] MEDS: POTASSIUM CHLORIDE INJ 40 MEQ in SODIUM CHLORIDE 0.9% IV 500 ML 130 MEQ IVPB (08:51)
[2021-06-18] MEDS: TOLNAFTATE 1% POWDER 45 GM BTL 1 APPLIC TOPICAL ×2 (08:56→19:59)
[2021-06-18 08:57] VITALS: RESP 22; O2SAT 95
[2021-06-18] MEDS: PANTOPRAZOLE SODIUM IV 40 MG VIAL IV PUSH (08:57)
[2021-06-18] MEDS: EUCERIN CREAM 120 GM JAR 1 APPLIC TOPICAL (09:04)
--- NOTE | 2021-06-18 10:07 | WPDCDIQUERY2 ---
CDI Query Clarification Request 06/15 Abdomen/Pelvis CT 06/15/21 08:30 IMPRESSION: 1. Free intraperitoneal gas. In the absence of recent surgery, this finding is consistent with perforated viscus. I called this result to Dr. Siddiqui. 2. Small volume of ascites. 3. 7 mm stone in proximal left ureter with severe left hydronephrosis. 4. Bilateral nonobstructing kidney stones. 5. Small pleural effusions. 06/15 ER Physician documented: Clinical Impression: -Perforated abdominal viscus, Ureterolithiasis, Pleural effusion, Comfort measures only status Please clarify if diagnosis, Ureterolithiasis, has been ruled in, ruled out or unable to determine <Leona Martino - Last Filed: 06/18/21 10:12> Clarified Diagnosis (1) Bilateral renal stones: Code(s): N20.0 - Calculus of kidney <Leona Martino - Last Filed: 06/18/21 10:12> Status: Acute <Leona Martino - Last Filed: 06/18/21 10:12> Assessment and Plan: patient with bilateral urolithiasis patient was seen by urologist unfortunately patient was not candidate any surgical intervention <Kevon Peace MD - Last Filed: 06/24/21 14:47>
[2021-06-18 11:49] LABS: Glucose Point of Care 42 mg/dl (65-105)
--- NOTE | 2021-06-18 12:20 | WPDUROPN2 ---
Progress Note: A&P Assessment and Plan (1) Hydronephrosis: Code(s): N13.30 - Unspecified hydronephrosis Status: Acute (2) Bilateral renal stones: Code(s): N20.0 - Calculus of kidney Status: Acute (3) Pyelonephritis: Code(s): N12 - Tubulo-interstitial nephritis, not specified as acute or chronic Status: Acute (4) Ureterolithiasis: Code(s): N20.1 - Calculus of ureter Status: Acute Assessment and Plan: No plans to intervene or to further evaluate at this time as the patient's family has decided to place her on hospice. Subjective Subjective Date/Time Seen: 06/18/21 12:20 I spoke with the patient's daughter today and she informed me that she is going to place her mother on hospice and they have been in contact with [facility], no further evaluation needed at this time. Review of Systems Review of Systems: ROS unobtainable: Yes unobtainable due to medical condition Objective Data Vital Signs Vital Signs: Vital Signs - 24 hr 06/17/21 15:10 06/17/21 15:43 06/17/21 20:00 Temperature 99.2 F Pulse Rate 121 H 110 H Respiratory Rate 21 H 20 Blood Pressure 119/102 H 120/98 H Pulse Oximetry 92 94 06/17/21 20:22 06/18/21 03:56 06/18/21 08:57 Temperature 99.1 F 98.8 F Pulse Rate 110 H 112 H Respiratory Rate 20 22 H 22 H Blood Pressure 145/71 H 135/66 Pulse Oximetry 94 94 95 Intake/Output Intake/Output: Intake & Output 06/15/21 06/16/21 06/17/21 06/18/21 23:59 23:59 23:59 23:59 Intake Total 1450 2550 1550 200 Output Total 197 659 0139 500 Balance 950 2200 450 -300 Meds/Results Medications: Active Medications Generic Name Dose Route Start Last Admin Trade Name Freq PRN Reason Stop Dose Admin Dextrose 12.5 gm 06/15/21 13:42 06/18/21 11:49 Dextrose 50% 25 Gm/50 Ml Syringe IV PUSH 12.5 gm PRN PRN Administration Hypoglycemia Protocol Glucagon 1 mg 06/15/21 13:42 Glucagon For Inj 1 Mg Vial IM PRN PRN Hypoglycemia Protocol Glucose 15 gm 06/15/21 13:42 Glucose Oral Gel 15 Gm Of Glucse In 37.5 Gm Tube PO PRN PRN Hypoglycemia Protocol Hydralazine HCl 10 mg 06/15/21 13:07 Hydralazine Hcl 20 Mg/Ml Vial IV PUSH Q8H PRN Blood Pressure - High Hydromorphone HCl 0.5 mg 06/15/21 08:54 06/17/21 12:06 Hydromorphone Hcl Inj (*Crx) 1 Mg/Ml Syr IV PUSH 0.5 mg Q4H PRN Administration Pain Rated 7-10 Metronidazole 500 mg in 100 mls @ 100 mls/hr 06/15/21 18:00 06/18/21 11:54 Flagyl 500 Mg/Iso Soln 100 Ml IVPB Infused Q8H JESSE Infusion Levofloxacin/Dextrose 750 mg in 150 mls @ 100 mls/hr 06/16/21 09:00 06/18/21 11:57 Levaquin 750 Mg/D5w 150 Ml IVPB 100 mls/hr Q24H JESSE Administration Dextrose 1,000 mls @ 75 mls/hr 06/18/21 02:45 06/18/21 11:58 Dextrose 10% IV CONT 75 mls/hr .[id number] JESSE Infusion Insulin Aspart 2 - 5 units 06/15/21 17:00 06/18/21 12:06 Insulin Aspart (*Bkc) 100 Units/Ml SUB-Q Not Given TIDWM JESSE Protocol Lorazepam 0.5 mg 06/15/21 13:05 Lorazepam Inj (*Crx) 2 Mg/Ml Vial IV PUSH Q6H PRN Anxiety Multi-Ingred Cream/Lotion/Oil/Oint 1 applic 06/18/21 17:00 Eucerin Cream 454 Gm Jar TOPICAL BID JESSE Ondansetron HCl 4 mg 06/15/21 08:54 Ondansetron Inj 4 Mg/2 Ml Vial IV PUSH Q4H PRN Nausea Pantoprazole Sodium 40 mg 06/16/21 09:00 06/18/21 08:57 Pantoprazole Sodium Iv 40 Mg Vial IV PUSH 40 mg QAM JESSE Administration Prochlorperazine Edisylate 10 mg 06/15/21 13:07 06/15/21 14:29 Prochlorperazine Edisylate 10 Mg/2 Ml Vial IV PUSH 10 mg Q6H PRN Administration Nausea And Vomiting Tolnaftate 1 applic 06/15/21 21:00 06/18/21 08:56 Tolnaftate 1% Powder 45 Gm Btl TOPICAL 1 applic Q12HR JESSE Administration Radiology Results: ITS Impressions Abdomen/Pelvis CT 06/15/21 08:30 IMPRESSION: 1. Free intraperitoneal gas. In the absence of rece
[2021-06-18 12:27] LABS: Glucose Point of Care 92 mg/dl (65-105)
[2021-06-18 14:30] VITALS: BP 130/83; PULSE 102; RESP 18; TEMP 36.9; O2SAT 92
[2021-06-18] MEDS: EUCERIN CREAM 454 GM JAR 1 APPLIC TOPICAL (17:11)
[2021-06-18 17:16] LABS: Glucose Point of Care 66 mg/dl (65-105)
[2021-06-18 18:07] LABS: Glucose Point of Care 110 mg/dl (65-105)
--- NOTE | 2021-06-18 18:38 | PM.IMPN ---
Progress Note: A&P Assessment and Plan (1) Abdominal pain: Qualifiers: Abdominal location: generalized Qualified Code(s): R10.84 - Generalized abdominal pain Code(s): R10.9 - Unspecified abdominal pain Status: Acute Assessment and Plan: Possibly secondary to perforated abdomen and pyelonephritis Continue pain medication Remain NPO Urology and surgery consulted Awaiting recommendations 06/16/2021 Interval history: 71-year-old female presented with complaint abdominal pain nausea and vomiting CT scan of the abdomen showed perforated viscus patient started on Levaquin and Flagyl, also patient has and patient be seen by surgery service further recommendation to follow, and also has severe left hydronephrosis and concerning for pyelonephritis will follow-up on urine culture with identification and sensitivity, be seen by urology service and further recommendation to follow, her daughter is present in the room, remains clinically stable feels better than when she came in, will continue to monitor and further recommendation to follow 06/17 Interval history: 71-year-old female presented with complaint abdominal pain nausea and vomiting CT scan of the abdomen showed perforated viscus patient started on Levaquin and Flagyl, also patient has and patient be seen by surgery service further recommendation to follow, and also has severe left hydronephrosis and concerning for pyelonephritis will follow-up on urine culture with identification and sensitivity, be seen by urology service and further recommendation to follow, her daughter is present in the room, remains clinically stable feels better than when she came in, will continue to monitor and further recommendation to follow 06/18 Interval history: 71-year-old female presented with complaint abdominal pain nausea and vomiting CT scan of the abdomen showed perforated viscus patient started on Levaquin and Flagyl, also patient has not seen by surgery service, as patient family decided comfort care and also has severe left hydronephrosis and concerning for pyelonephritis will follow-up on urine culture with identification and sensitivity however urine culture no growth so far , seen by urology service and further recommendation to follow, her daughter is present in the room, repeat CT of abdomen today showed persistent perforation, patient family has signed with [facility] hospice, will be discharge tomorrow. (2) Vomiting: Qualifiers: Nausea presence: with nausea Vomiting type: unspecified Qualified Code(s): R11.2 - Nausea with vomiting, unspecified Code(s): R11.10 - Vomiting, unspecified Status: Acute Assessment and Plan: Continue Zofran and Compazine if Zofran is not effective (3) Perforated abdominal viscus: Code(s): R19.8 - Other specified symptoms and signs involving the digestive system and abdomen Status: Acute Assessment and Plan: Imaging indicates Free intraperitoneal gas possibly secondary to a perforated viscus Surgery consulted awaiting recommendations thank you for the care this patient Patient started on Levaquin and Flagyl Patient WBC within normal limits afebrile with elevated lactic acid (4) Pleural effusion: Code(s): J90 - Pleural effusion, not elsewhere classified Status: Acute Assessment and Plan: Imaging indicates a small pleural effusion (5) History of CVA with residual deficit: Code(s): I69.30 - Unspecified sequelae of cerebral infarction Status: Acute (6) Diabetes mellitus: Code(s): E11.9 - Type 2 diabetes mellitus without complications Status: Acute Assessment and Plan: Patient currently NPO Patient receiving D5 IV fluid with low-dose sliding scale Glucose below 300 Will continue Accu-Cheks (7) CHF (congestive heart failure): Code(s): I50.9 - Heart failure, unspecified Status: Acute Assessment and Plan: Alonzo
[2021-06-18 19:46] VITALS: BP 145/75; PULSE 106; RESP 16; TEMP 37.1; O2SAT 94
[2021-06-18 20:00] VITALS: PULSE 106; RESP 16; O2SAT 94
[2021-06-18 20:33] LABS: Glucose Point of Care 79 mg/dl (65-105)
[2021-06-19 00:14] LABS: Glucose Point of Care 98 mg/dl (65-105)
[2021-06-19] MEDS: metroNIDAZOLE 500 MG/ISO 100ML 500 MG/100 ML BAG 100 MG IVPB ×2 (01:56→10:53)
[2021-06-19] MEDS: HYDROmorphone HCL INJ (*CRX) 1 MG/ML SYR 0.5 MG IV PUSH ×3 (01:58→12:55)
[2021-06-19 04:54] VITALS: BP 144/67; PULSE 98; RESP 16; TEMP 36.6; O2SAT 96
[2021-06-19 05:28] LABS: Hematocrit 39.7 % (37.0-47.0); Hemoglobin 12.8 g/dL (12.0-15.0); Mean Corpuscular HGB Conc 32.2 g/dl (32-36); Mean Corpuscular Hemoglobin 28.9 pg (26-34); Mean Corpuscular Volume 89.6 fl (80-100); Mean Platelet Volume 10.1 fl (7.4-10.4); Platelet Count Result 126 k/mm3 (150-375); Red Blood Count 4.43 M/mm3 (4.2-5.4); Red Cell Distribution Width 15.7 % (11.5-14.5); White Blood Count 10.2 K/mm3 (4.5-10.0)
[2021-06-19 05:49] LABS: Alanine Aminotransferase 10 U/L (4-35); Albumin Level 2.4 g/dL (3.5-5.1); Alkaline Phosphatase 49 U/L (38-126); Anion Gap 6 mmol/L (8-16); Aspartate Amino Transferase 24 U/L (14-36); Bilirubin,Total 0.8 mg/dL (0.2-1.3); Blood Urea Nitrogen 44 mg/dL (7-17); Carbon Dioxide 24 mmol/L (22-30); Chloride 110 mmol/L (98-107); Estimated CRCL calculation 60 ml/min; Estimated Glomerular Filt Rate 49; Glucose 103 mg/dL (65-110); Magnesium 1.9 mg/dL (1.6-2.3); Potassium 3.8 mmol/L (3.4-5.0); Sodium 140 mmol/L (137-145)
[2021-06-19 06:46] LABS: Glucose Point of Care 122 mg/dl (65-105)
[2021-06-19] MEDS: PANTOPRAZOLE SODIUM IV 40 MG VIAL IV PUSH (08:55)
[2021-06-19] MEDS: TOLNAFTATE 1% POWDER 45 GM BTL 1 APPLIC TOPICAL (10:23)
[2021-06-19] MEDS: EUCERIN CREAM 454 GM JAR 1 APPLIC TOPICAL ×2 (10:23→16:56)
[2021-06-19 11:37] LABS: Glucose Point of Care 109 mg/dl (65-105)
[2021-06-19 13:59] VITALS: BP 130/65; PULSE 97; RESP 18; TEMP 36.8; O2SAT 95
--- NOTE | 2021-06-19 14:06 | PC.NURSE ---
On 06/19/21, the student, [ Nohemy Pulido], provided care and completed [employer] documentation on this patient. I have reviewed the student's documentation and agree with the findings.
--- NOTE | 2021-06-19 15:10 | P.DS_ITS ---
DS: Admitting Diagnosis Discharge Date 06/19/2021 Admitting Diagnosis abdominal pain DS: Discharge Diagnosis Discharge Diagnosis (1) Abdominal pain: Qualifiers: Abdominal location: generalized Qualified Code(s): R10.84 - Generalized abdominal pain Code(s): R10.9 - Unspecified abdominal pain Status: Acute Assessment and Plan: 71-year-old female with abdominal pain nausea vomiting. CT abdomen showed perforated viscus findings with free intraperitoneal air. She was started on Levaquin and Flagyl. She also is noted to have severe left hydronephrosis and concern for pyelonephritis. Urology was consulted. With the findings of possible viscus perforation and her poor overall performance status , goals of care discussion was made and her daughter opted for hospice care. She was eventually planned to be transferred to a nursing facility for further hospice care which was arranged with the help of care coordination. (2) Vomiting: Qualifiers: Nausea presence: with nausea Vomiting type: unspecified Qualified Code(s): R11.2 - Nausea with vomiting, unspecified Code(s): R11.10 - Vomiting, unspecified Status: Acute Assessment and Plan: * Continue Zofran and Compazine if Zofran is not effective (3) Perforated abdominal viscus: Code(s): R19.8 - Other specified symptoms and signs involving the digestive system and abdomen Status: Acute Assessment and Plan: * Imaging indicates Free intraperitoneal gas possibly secondary to a perforated viscus * Patient started on Levaquin and Flagyl * Patient WBC within normal limits afebrile with elevated lactic acid (4) Pleural effusion: Code(s): J90 - Pleural effusion, not elsewhere classified Status: Acute Assessment and Plan: * Imaging indicates a small pleural effusion (5) History of CVA with residual deficit: Code(s): I69.30 - Unspecified sequelae of cerebral infarction Status: Acute (6) Diabetes mellitus: Code(s): E11.9 - Type 2 diabetes mellitus without complications Status: Acute Assessment and Plan: * Patient currently NPO * Patient receiving D5 IV fluid with low-dose sliding scale * Glucose below 300 * Will continue Accu-Cheks (7) CHF (congestive heart failure): Code(s): I50.9 - Heart failure, unspecified Status: Acute Assessment and Plan: * Lasix 40 mg daily on hold * (8) Acute renal failure: Qualifiers: Acute renal failure type: unspecified Qualified Code(s): N17.9 - Acute kidney failure, unspecified Code(s): N17.9 - Acute kidney failure, unspecified Status: Acute Assessment and Plan: * Acute on chronic * Possibly secondary to hydronephrosis and infection * BUN/creatinine 22/1.40, baseline appears to be 22-30 /1.30-1.40 * Avoid nephrotoxins agent * Renal dose medications (9) HTN (hypertension): Code(s): I10 - Essential (primary) hypertension Status: Acute Assessment and Plan: * Soft * Patient NPO home medication on hold * Patient takes amlodipine 10 mg daily Which is resumed at the time of discharge (10) Pyelonephritis: Code(s): N12 - Tubulo-interstitial nephritis, not specified as acute or chronic Status: Acute Assessment and Plan: * UA positive for leukocytes, protein, nitrites, and RBCs * UA culture with no growth * Continue Levaquin and Flagyl D1 * Patient afebrile with normal WBCs * 4 elevated lactic acid 4.1>3.0 (11) Hydronephrosis: Code(s):
--- NOTE | 2021-06-19 15:10 | PM.DS ---
DS: Admitting Diagnosis Discharge Date 06/19/2021 Admitting Diagnosis abdominal pain DS: Discharge Diagnosis Discharge Diagnosis (1) Abdominal pain: Qualifiers: Abdominal location: generalized Qualified Code(s): R10.84 - Generalized abdominal pain Code(s): R10.9 - Unspecified abdominal pain Status: Acute Assessment and Plan: 71-year-old female with abdominal pain nausea vomiting. CT abdomen showed perforated viscus findings with free intraperitoneal air. She was started on Levaquin and Flagyl. She also is noted to have severe left hydronephrosis and concern for pyelonephritis. Urology was consulted. With the findings of possible viscus perforation and her poor overall performance status , goals of care discussion was made and her daughter opted for hospice care. She was eventually planned to be transferred to a nursing facility for further hospice care which was arranged with the help of care coordination. (2) Vomiting: Qualifiers: Nausea presence: with nausea Vomiting type: unspecified Qualified Code(s): R11.2 - Nausea with vomiting, unspecified Code(s): R11.10 - Vomiting, unspecified Status: Acute Assessment and Plan: Continue Zofran and Compazine if Zofran is not effective (3) Perforated abdominal viscus: Code(s): R19.8 - Other specified symptoms and signs involving the digestive system and abdomen Status: Acute Assessment and Plan: Imaging indicates Free intraperitoneal gas possibly secondary to a perforated viscus Patient started on Levaquin and Flagyl Patient WBC within normal limits afebrile with elevated lactic acid (4) Pleural effusion: Code(s): J90 - Pleural effusion, not elsewhere classified Status: Acute Assessment and Plan: Imaging indicates a small pleural effusion (5) History of CVA with residual deficit: Code(s): I69.30 - Unspecified sequelae of cerebral infarction Status: Acute (6) Diabetes mellitus: Code(s): E11.9 - Type 2 diabetes mellitus without complications Status: Acute Assessment and Plan: Patient currently NPO Patient receiving D5 IV fluid with low-dose sliding scale Glucose below 300 Will continue Accu-Cheks (7) CHF (congestive heart failure): Code(s): I50.9 - Heart failure, unspecified Status: Acute Assessment and Plan: Lasix 40 mg daily on hold (8) Acute renal failure: Qualifiers: Acute renal failure type: unspecified Qualified Code(s): N17.9 - Acute kidney failure, unspecified Code(s): N17.9 - Acute kidney failure, unspecified Status: Acute Assessment and Plan: Acute on chronic Possibly secondary to hydronephrosis and infection BUN/creatinine 22/1.40, baseline appears to be 22-30 /1.30-1.40 Avoid nephrotoxins agent Renal dose medications (9) HTN (hypertension): Code(s): I10 - Essential (primary) hypertension Status: Acute Assessment and Plan: Soft Patient NPO home medication on hold Patient takes amlodipine 10 mg daily Which is resumed at the time of discharge (10) Pyelonephritis: Code(s): N12 - Tubulo-interstitial nephritis, not specified as acute or chronic Status: Acute Assessment and Plan: UA positive for leukocytes, protein, nitrites, and RBCs UA culture with no growth Continue Levaquin and Flagyl D1 Patient afebrile with normal WBCs 4 elevated lactic acid 4.1>3.0 (11) Hydronephrosis: Code(s): N13.30 - Unspecified hydronephrosis Status: Acute Assessment and Plan: Imaging indicates severe left hydronephrosis with a 7 mm stone in the proximal left urethra consulted Urology Continue intake and output Catheter Bower started Continue Bower at discharge for comfort and hospice care DS: Summary Hospital Course Hospital Course: see above Time Spent with Patient Time attestation: Total time spent
[2021-06-19 15:32] LABS: EDCOVIDSCREEN Negative (Negative)
[2021-06-19 16:57] LABS: Glucose Point of Care 118 mg/dl (65-105)
--- NOTE | 2021-06-19 17:30 | PC.NURSE ---
Patient's daughter Randy called and notified me that she did not agree for the patient to go to [facility]. She stated she spoke with the insurance administrator about patient being transferred to [facility], but was still deciding on placement. Care coordination notified me patient was set for discharge and had been accepted into [facility] and insurance was approved. Patient's daughter notified me at this time she received Leatha's message from care coordination and was okay for patient to be transferred to [facility] at this time. Ambulance arrived and patient was put on stretcher. As patient was on the stretcher and waiting for lift assist to be discharged to [facility], the patient's daughter called back. The patient's daughter was at [facility] with SHANNAN Pate from [facility]. The patient's daughter stated I talked to hospice and they said she can come home instead of going to [facility] if she hasn't left the hospital yet. I spoke to SHANNAN Pate who stated patient may be discharged home and she will get oxygen delivered to patient's house. She stated the patient had a hospital bed at home and she would set everything else up with the family once patient arrived. I spoke with the ER day care aide who stated as long as hospice sets everything up the patient can go home. She will call [facility] and notify them as a secondary verification that the patient will no longer be coming(they are aware already of families decision as family is at facility now with the hospice nurse). I spoke with the housekeeper supervisor of the situation. I notified Dr. Terrazas of the daughters decision to take the patient home instead of going to [facility]. He okayed me to changed discharge disposition to Home-Hospice. Ambulance given new address to patient's home rather than [facility]. Family is agreeable to patient being discharged home on hospice at this time. SHANNAN Pate said she has all the necessary information needed for patient and she does not need extra information faxed at this time.
--- NOTE | 2021-06-19 17:51 | PCCCNOTE ---
supervisor joiners requests that care coordination call bedside RN Kat on the floor. Called to [facility] Kat, she states that daughter wants patient to go home with hospice and not to a facility ( Plan was for [facility]). Patient is on the stretcher, Kat has already spoken with Herlinda at [facility] who states they can admit at home, the patient already has a hospital bed and Herlinda from [facility] will get emergency oxygen as patient is on 2L. This reproductive healthcare assistant called to [facility] and spoke with Colton; notified that patient would not be admitting to their facility as patient will be discharging home with hospice.
== END 2021-06-19 17:50 | disposition hospice, home (50) | DRG 394 ==
LOC: ANHED 09:01 → ANH2MED 10:00
PROVIDERS: Emergency Medicine; Family Medicine; Nurse Practitioner; Admitting Provider Internal Medicine; Emergency Provider Emergency Medicine; Visit Provider Internal Medicine
DX: K63.1 Perforation of intestine (nontraumatic) (principal); J90 Pleural effusion, not elsewhere classified; N17.9 Acute kidney failure, unspecified; N13.6 Pyonephrosis; N20.1 Calculus of ureter; E66.01 Morbid (severe) obesity due to excess calories; Z20.822 Contact with and (suspected) exposure to COVID-19; R19.8 Other specified symptoms and signs involving the digestive system and abdomen; I69.30 Unspecified sequelae of cerebral infarction; Z51.5 Encounter for palliative care; E11.9 Type 2 diabetes mellitus without complications; I50.9 Heart failure, unspecified; I11.0 Hypertensive heart disease with heart failure; Z87.891 Personal history of nicotine dependence; Z80.3 Family history of malignant neoplasm of breast; Z83.3 Family history of diabetes mellitus; Z82.3 Family history of stroke; Z79.899 Other long term (current) drug therapy; Z79.82 Long term (current) use of aspirin; Z79.4 Long term (current) use of insulin; N20.0 Calculus of kidney
CPT/HCPCS: 36415; 51701; 74176; 74177; 78708; 80053; 81001; 82948; 83036; 83605; 83690; 83735; 83880; 84484; 85025; 85027; 87086; 87088; 87426; 93005; 96361; 96374; 96375; 99285; A9270; A9562; C1751; C9113; C9803; J0131; J0780; J1170; J1815; J1940; J1956; J2405; J3480; J7030; J7040; J7042; Q9967